=== PATIENT | male | born 1965 ===

== ENCOUNTER 2019-11-14 17:15 | Inpatient (IN) | payer SELFPAY ==
[~2019-11-14 17:15] MED LIST: Iopamidol-370 76% 500 ML 1 ML ONE
[2019-11-14 17:47] LABS: #Eosinphils 0.2 thou/uL (0.0-0.7); #Lymphocytes 1.6 thou/uL (1.20-3.40); #Monocytes 0.7 thou/uL (0.11-0.59); #Neutrophils 2.1 thou/uL (1.40-6.50); %Basophils 1.1 % (0.0-1.0); %Eosinophils 4.5 % (0.0-10.0); %Lymphocytes 35.1 % (21.0-51.0); %Monocytes 14.7 % (0.0-10.0); %Neutrophils 44.7 % (42.0-75.0); Hemoglobin 8.1 g/dL (14.0-18.0); Mean Corpuscular HGB CONC 29.2 g/dL (32.0-36.0); Mean Corpuscular Volume 68.6 fL (78.0-98.0); RBC Distribution Width 17.4 % (11.5-14.5); Red Blood Cell (RBC) Count 4.06 mill/uL (4.70-6.10); White Blood Cell (WBC) Count 4.6 thou/uL (4.8-10.8)
[2019-11-14] MEDS ORDERED: Aspirin Chewable 81 MG TAB ONE (17:51)
[2019-11-14 18:05] LABS: Anisocytosis SLIGHT = 6-15 cells (100X) (0-5/hpf); Elliptocytes SLIGHT = 2-5 cells (100X) (0-1/hpf); Hypochromia MODERATE=16-30 cells (100X) (0-5/hpf); MDiff Complete? YES; Mean Platelet Volume 7.3 fL (7.4-10.4); Microcytosis MODERATE=15-30 cells (100X) (0-5/hpf); Platelet Count 74 thou/uL (130-400); Platelet Morphology Comment Appears Decreased; Polychromasia SLIGHT = 2-3 cells (100X) (0-2/hpf); Reflex for Review?? YES; Target Cells SLIGHT = 2-5 cells (100X) (0-1/hpf); Tear Drops SLIGHT = 2-5 cells (100X) (0-1/hpf)
[2019-11-14 18:09] LABS: ALT (SGPT) 34 U/L (8-55); AST (SGOT) 62 U/L (5-34); Alkaline Phosphatase 87 U/L (40-110); Anion Gap 13 mmol/L (10-20); BUN (Urea Nitrogen) 12 mg/dL (8.4-25.7); Bilirubin, Total 0.6 mg/dL (0.2-1.2); CK (CPK) 312 U/L (30-200); Calc. Creatinine Clearance 0 mL/min (70-130); Calcium 9.1 mg/dL (7.8-10.44); Carbon Dioxide 23 mmol/L (22-29); Chloride 108 mmol/L (98-107); Estimated GFR-MDRD 76; Globulin 3.5 g/dL (2.4-3.5); Glucose 109 mg/dL (70-105); Lipase 48 U/L (8-78); Potassium 4.4 mmol/L (3.5-5.1); Protein, Total 7.5 g/dL (6.0-8.3); Sodium 140 mmol/L (136-145)
[2019-11-14 18:36] LABS: CKMB 8.5 ng/mL (0-6.6)
[2019-11-14] MEDS ORDERED: Enoxaparin Sodium 80 MG/0.8 ML SYRINGE ONE (18:39)
--- NOTE | 2019-11-14 18:59 | RAD ---
CHEST ONE VIEW: 11/14/19 HISTORY: Chest pain. COMPARISON: None. FINDINGS: Heart size is mildly enlarged. There is a patchy lower lobe air space opacity. No pneumothorax. No si gnificant effusion. No acute osseous abnormality. Old left distal clavicular injury as well as injury of the acromioclavicular and coracoclavicular ligaments. Pulmonary arteries are mildly dilated. IMPRESSION: Cardiomegaly with some patchy air space opacities in both lower lobes may reflect atypical infection versus less likely edema. POS: HOME
--- NOTE | 2019-11-14 19:16 | CT ---
CTA OF THE THORAX UTILIZING IV CONTRAST, PE PROTOCOL, 3D REFORMATTED IMAGIN11/14/19 INDICATION: History of chest pain. FINDINGS: There is interstitial thickening suspicious for edema with fluid in the major fissures and small bila teral pleural effusions. No air space consolidation is evident. No central or segmental pulmonary emb olus is evident. There are coronary artery thoracic aortic calcifications. There is cirrhotic morphol ogy of the liver. There is moderate splenomegaly measuring 16 cm. The visualized adrenal glands appea r within normal limits. No free fluid or enlarged lymph nodes are evident. There is a mildly prominen t subcarinal lymph node measuring 1.5 cm. There are mildly prominent precarinal lymph nodes measuring 1.3 cm. There is a mildly prominent AP window lymph node. A few mildly prominent axillary lymph node s bilaterally. One of the largest is seen on the left measuring approximately 1.5 cm. There is scatte red degenerative and osteoarthritic change. IMPRESSION: 1. No central or segmental pulmonary embolus. 2. Findings suspicious for mild CHF. 3. Nonspecific mildly enlarged mediastinal lymph nodes. 4. Cirrhotic morphology of the liver with changes of portal hypertension. POS: BH
[2019-11-14 19:26] LABS: Acetaminophen Less than 6.0 mcg/mL (10.0-30.0); Alcohol Less than 10 mg/dL (Less than 10); Salicylate Less than 8.0 mg/dL (15.0-30.0)
--- NOTE | 2019-11-14 19:34 | PDOC.FPRHP ---
- History of Present Illness Chief Complaint: Chest pain History of Present Illness: This is a 54 yo male who has not seen a doctor in 20 years who presents to the ER with a cc of chest pain. He states the pain first started about a year ago and has been off and on since then. He states the pain is epigastic in nature and he believed it was indigestion since its start. He denies radiation of the pain. He states it is a pressure like pain that is sometimes made worse with exertion. He reports associated SOB and blurry vision with the pain. He would try pepto bismol with little relief. He came in to night because the frequency of the pain has increased to everyday. He denies relevant family history of heart disease. He reports daily drinking, smoking marijuana, cigarettes, and cocaine use. The last time he used cocaine was yesterday and he does not believe this worsens his pain. ED Course: Aspirin 324 mg Lovenox sc 1mg/kg - Allergies/Adverse Reactions Allergies Allergy/AdvReac Type Severity Reaction Status Date / Time No Known Allergies Allergy Unverified 11/14/19 21:11 - Home Medications Medication Instructions Recorded Confirmed Type No Known 11/14/19 11/14/19 History - History PMHx: Alcohol abuse PSHx: Hand and foot surgery FHx: Noncontributory Social: Drinks a 6 pack a day for the last 8 years but denies any withdraw symptoms when stopping. Smokes 3-4 cigarettes when he drinks, uses cocaine, smokes marijuana - Review of Systems General: reports: fatigue. denies: fever/chills, weight/appetite/sleep changes , night sweats Eyes: reports: vision changes (with pain). denies: eye pain ENT: denies: nasal congestion, rhinorrhea Respiratory: reports: shortness of breath, exercise intolerance. denies: cough , congestion Cardiovascular: reports: chest pain. denies: palpitation, edema, paroxysmal nocturnal dyspnea, orthopnea Gastrointestinal: reports: other (reports dark stools when he uses pepto bismol) . denies: nausea, vomiting, diarrhea, constipation, abdominal pain, GI bleeding Genitourinary: denies: incontinence, dysuria Skin: denies: rashes, lesions Musculoskeletal: denies: pain, tenderness Neurological: denies: numbness, syncope Psychological: denies: anxiety, depression - Vital signs BP: 105/82 HR: 101 RR: 18 Tmax: 97.9 Pox: 98% on ra Wt: 84kg - Physical Exam Constitutional: NAD, awake, alert and oriented, well developed HEENT: normocephalic and atraumatic, EOMI, grossly normal vision, grossly normal hearing, MMM Neck: trachea midline, no JVD Chest: no-tender to palpation, no lesions Heart: RRR, normal S1/S2, no murmurs/rubs/gallops, pulses present, other (1+ pitting edema to mid calf) Lungs: CTAB, no respiratory distress, good air movement, no rales/rhonchi, no wheezing, no retractions Abdomen: soft, non-tender, bowel sounds present, no masses/distention, no hernias Musculoskeletal: normal structure, normal tone, ROM grossly normal Neurological: no focal deficit, CN II-XII intact, normal sensation Skin: good turgor, capillary refill <2 seconds Heme/Lymphatic: no unusual bruising or bleeding Psychiatric: normal mood and affect, good judgment and insight FMR H&P: Results - Labs Result Diagrams: 11/15/19 03:40 11/15/19 03:40 Lab results: WBC 4.6 thou/uL (4.8-10.8) L 11/14/19 17:33 Hgb 8.1 g/dL (14.0-18.0) L 11/14/19 17:33 Hct 27.9 % (42.0-52.0) L 11/14/19 17:33 MCV 68.6 fL (78.0-98.0) L 11/14/19 17:33 Plt Count 74 thou/uL (130-400) L 11/14/19 17:33 Neutrophils % 44.7 % (42.0-75.0) 11/14/19 17:33 Sodium 140 mmol/L (136-145) 11/14/19 17:33 Potassium 4.4 mmol/L (3.5-5.1) 11/14/19 17:33 Chloride 108 mmol/L (98-107) H 11/14/19 17:33 Carbon Dioxide 23 mmol/L (22-29) 11/14/19 17:33 BUN 12 mg/dL (8.4-25.7) 11/14/19 17:33 Creatinine 1.02 mg/dL (0.7-1.3) 11/14/19 17:33 Glucose 109 mg/dL (70-105) H 11/14/19 17:33 Calcium 9.1 mg/dL (7.8-10.44) 11/14/19 17:33 Total Bilirubin 0.6 mg/dL (0.2-1.2) 11/14/19 17:33 AST 62 U/L (5-34) H 11/14/19 17:33 ALT 34 U/L (8-55) 11/14/19 17:33 Alkaline Phosphatase 87 U/L (40-110) 11/14/19 17:33 Creatine Kinase 312 U/L (30-200) H 11/14/19 17:33 CK-MB (CK-2) 8.5 ng/mL (0-6.6) H* 11/14/19 17:33 B-Natriuretic Peptide 1206.3 pg/mL (0-100) H 11/14/19 18:16 Serum Total Protein 7.5 g/dL (6.0-8.3) 11/14/19 17:33 Albumin 4.0 g/dL (3.5-5.0) 11/14/19 17:33 Lipase 48 U/L (8-78) 11/14/19 17:33 - EKG Interpretation EKG: Rate 110 Qtc 489 QRS 98 Sinus tach, ST depression in V4-V6, I, aVL, and aVF - Radiology Interpretation CT scan - chest Status: report reviewed by me (1. No central or segmental pulmonary embolus. 2. Findings suspicious for mild CHF. 3. Nonspecific mildly enlarged mediastinal lymph nodes. 4. Cirrhotic morphology of the liver with changes of portal hypertension.) Chest x-ray Status: report reviewed by me (Cardiomegaly, vascular congestion) FMR H&P: A/P - Problem List (1) NSTEMI (non-ST elevated myocardial infarction) Current Visit: Yes Status: Acute Code(s): I21.4 - NON-ST ELEVATION (NSTEMI) MYOCARDIAL INFARCTION (2) Pancytopenia Current Visit: Yes Status: Acute Code(s): D61.818 - OTHER PANCYTOPENIA (3) Cirrhosis Current Visit: Yes Status: Acute Code(s): K74.60 - UNSPECIFIED CIRRHOSIS OF LIVER (4) Cocaine abuse Current Visit: Yes Status: Acute Code(s): F14.10 - COCAINE ABUSE, UNCOMPLICATED - Plan NSTEMI -Admit to tele obs -S/p therapeutic lovenox and aspirin -EKG shows ST elevations in aVR, V1, V2, and ST depressions in V4-V6, I, II, aVL , and aVF -Will trend troponins and EKG -Discussed with Dr. Bettencourt, NPO and DC lovenox at midnight with possible cath in the AM -Will continue aspirin and start atorvastatin Elevate BNP -May be strain related to NSTEMI -Will obtain Echo Pancytopenia -Likely related to alcoholism -Hgb 8.1, Hct 27.9, WBC 4.6, Plt 74 -Transfusion criteria will be Hgb <8 given cardiac condition -Pt typed and crossed Alcohol abuse -ASE protocol, no history of withdraw -Encouraged cessation Cocaine abuse -UDS positive, encouraged cessation Tobacco abuse -Encourage cessation Marijuana abuse -Encourage cessation Cirrhosis -As seen on CT, pending RUQ US -Pending HIV, RPR, Hep C Code: Full Prophylaxis: Pepcid, lovenox Family: None at bedside Fluids: SL Diet: NPO Disposition: DC in 2-3 days PCP: None Addendum - Attending - Attending Attestation Date/Time: 11/15/19 7428 I personally evaluated the patient and discussed the management with Dr. Weiss. I agree with the History, Examination, Assessment and Plan documented above with any addition or exceptions noted below. Patient chest pain free during my evaluation. On ECG appears to have YANDY of high left main in light of elevated aVR and Anterior leads with reciprocal changes V5/[address] Btetencourt reviewed ECG and felt NSTEMI. Hopeful cath this morning. BB held in light of very recent cocaine use, although he does not appear to be intoxicated at this time. Concerning BNP, although clinically he does not have any HF.
[2019-11-14 20:02] LABS: Amphetamine Not Detected (NotDetected); Barbiturates Screen Not Detected (NotDetected); Benzodiazepine Screen Not Detected (NotDetected); Cocaine Metabolite Screen Detected (NotDetected); Medtox Control Line Valid? VALID (VALID); Medtox Reader # READER 4; Methadone Not Detected (NotDetected); Methamphetamine Not Detected (NotDetected); Opiate Screen Not Detected (NotDetected); Oxycodone Screen Not Detected (NotDetected); Phencyclidine (PCP) Not Detected (NotDetected); THC/Cannabinoid Screen Detected (NotDetected); Tricyclic Screen Not Detected (NotDetected)
[2019-11-14 21:01] LABS: Critical Call Chem Troponin I RESULT DECREASING; Troponin I 2.909 ng/mL (< 0.028)
[2019-11-14] MEDS ORDERED: Ondansetron ODT 4 MG TAB PO PRN (22:20)
[2019-11-14] MEDS ORDERED: Ondansetron PF 4 MG/2 ML Vial IVP PRN (22:20)
[2019-11-14] MEDS ORDERED: Diazepam 5 MG TAB PO PRN (22:27)
[2019-11-14] MEDS ORDERED: Famotidine 20 MG TAB PO SCH (22:30)
[2019-11-14] MEDS ORDERED: Diazepam 5 MG TAB PO SCH (23:00)
[2019-11-14] MEDS ORDERED: Thiamine HCl 200 MG/2 ML VIAL IM SCH (23:00)
[2019-11-14 23:16] LABS: Troponin I 2.994 ng/mL (< 0.028)
[2019-11-14 23:31] LABS: HIV (1/2) Antibody/Antigen Non-Reactive (NonReactive); HIV 1/2 INDEX 0.09 S/CO (<1.00); Hep C IgG Ab Non-Reactive (NonReactive)
[2019-11-14 23:37] LABS: Syphilis Antibody Nonreactive (Nonreactive); Syphilis Antibody Index 0.03 S/CO (<1.00 Non-Reactive)
[2019-11-15] MEDS ORDERED: Diazepam 5 MG TAB PO PRN (04:00)
[2019-11-15] MEDS: Enoxaparin Sodium 80 MG/0.8 ML SYRINGE SC SCH ×2 (04:46→17:45)
[2019-11-15 05:05] LABS: ALT (SGPT) 28 U/L (8-55); AST (SGOT) 49 U/L (5-34); Albumin 3.4 g/dL (3.5-5.0); Alkaline Phosphatase 73 U/L (40-110); Anion Gap 13 mmol/L (10-20); BUN (Urea Nitrogen) 13 mg/dL (8.4-25.7); Bilirubin, Total 0.4 mg/dL (0.2-1.2); Calc. Creatinine Clearance 128 mL/min (70-130); Calcium 8.2 mg/dL (7.8-10.44); Carbon Dioxide 21 mmol/L (22-29); Cardiac Risk 3.8 (Less than 4.5); Chloride 108 mmol/L (98-107); Cholesterol 118 mg/dl (< 200 Desired); Estimated GFR-MDRD Greater than 90; Globulin 3.3 g/dL (2.4-3.5); Glucose 88 mg/dL (70-105); HDL Cholesterol 31 mg/dL (>60 Neg Risk); LDL Cholesterol, Calculated 70 mg/dL; Protein, Total 6.7 g/dL (6.0-8.3); Sodium 138 mmol/L (136-145); Triglycerides 86 mg/dL (Less than 150)
[2019-11-15 05:54] LABS: #Eosinphils 0.2 thou/uL (0.0-0.7); #Lymphocytes 1.8 thou/uL (1.20-3.40); #Monocytes 0.7 thou/uL (0.11-0.59); %Basophils 0.7 % (0.0-1.0); %Eosinophils 4.3 % (0.0-10.0); %Monocytes 14.9 % (0.0-10.0); %Neutrophils 42.2 % (42.0-75.0); Anisocytosis SLIGHT = 6-15 cells (100X) (0-5/hpf); Hemoglobin 7.3 g/dL (14.0-18.0); MDiff Complete? YES; Mean Corpuscular HGB CONC 29.8 g/dL (32.0-36.0); Mean Corpuscular Hemoglobin 20.6 pg (27.0-31.0); Mean Platelet Volume 7.4 fL (7.4-10.4); Ovalocytes SLIGHT = 2-5 cells (100X) (0-1/hpf); Platelet Count 71 thou/uL (130-400); Platelet Morphology Comment Appears Decreased; RBC Distribution Width 17.4 % (11.5-14.5); Red Blood Cell (RBC) Count 3.54 mill/uL (4.70-6.10); White Blood Cell (WBC) Count 4.8 thou/uL (4.8-10.8)
--- NOTE | 2019-11-15 06:16 | PDOC.FM ---
- Subjective Subjective: Doing well, no complaints. Denies chest pain, shortness of breath, sources of bleeding. - Objective Vital Signs & Weight: Vital Signs (12 hours) Temp Pulse Resp BP BP Pulse Ox 11/15/19 04:23 99.6 F 108 H 14 123/81 93 L 11/14/19 20:54 98.2 F 108 H 14 118/80 99 Weight Weight 82.826 kg I&O: 11/13/19 11/14/19 11/15/19 06:59 06:59 06:59 Intake Total 240 Output Total 400 Balance -160 Result Diagrams: 11/15/19 03:40 11/15/19 03:40 EKG Reviewed by me: Yes Radiology Reviewed by me: Yes Phys Exam - Physical Examination Constitutional: NAD HEENT: moist MMs Respiratory: clear to auscultation bilateral Cardiovascular: RRR, no significant murmur Gastrointestinal: soft, non-tender Musculoskeletal: no edema, pulses present Neurological: moves all 4 limbs Psychiatric: normal affect, A&O x 3 Skin: no rash Dx/Plan (1) Atypical chest pain Code(s): R07.89 - OTHER CHEST PAIN Status: Acute (2) Cirrhosis Code(s): K74.60 - UNSPECIFIED CIRRHOSIS OF LIVER Status: Acute (3) Cocaine abuse Code(s): F14.10 - COCAINE ABUSE, UNCOMPLICATED Status: Acute (4) NSTEMI (non-ST elevated myocardial infarction) Code(s): I21.4 - NON-ST ELEVATION (NSTEMI) MYOCARDIAL INFARCTION Status: Acute (5) Pancytopenia Code(s): D61.818 - OTHER PANCYTOPENIA Status: Acute - Plan Plan: NSTEMI -S/p therapeutic lovenox and aspirin - holding lovenox this morning for poss cath -Trops: 3.026 > 2.909 > 2.994 -Dr. Bettencourt, Cardiology, consulted last night - appreciate recs -Will continue aspirin and start atorvastatin Elevate BNP -May be strain related to NSTEMI -BNP: 1206 -Will obtain Echo Pancytopenia -Likely related to alcoholism -Hgb 7.3 this morning, due to current cardiac event transfusion level is 8 -Type and Cross 2 u - transfuse 1 u this morning w/ 4 hour post trx H&H Alcohol abuse -ASE protocol, no history of withdraw -Encouraged cessation Cocaine abuse -UDS positive, encouraged cessation Tobacco abuse -Encourage cessation Marijuana abuse -Encourage cessation Cirrhosis -As seen on CT, pending RUQ US -HIV, RPR, Hep C - negative Code: Full Prophylaxis: Pepcid, lovenox Family: None at bedside Fluids: SL Diet: NPO Disposition: Tele inpt for cardiac monitoring. Possible cath today. Pending echo , RUQ US. PCP: None Addendum - Attending - Attending Attestation Date/Time: 11/15/19 4075 I personally evaluated the patient and discussed the management with Dr. Ferrer. I agree with the History, Examination, Assessment and Plan documented above with any addition or exceptions noted below. Patient getting transfused, needs cardiac evaluation regarding NSTEMI which may be due to demand ischemia from his anemia. Monitor for alcohol withdrawal symptoms.
[2019-11-15 07:10] LABS: Iron 16 ug/dL (65-175); Iron Binding Capacity, Total 425 mcg/dL (261-462)
--- NOTE | 2019-11-15 08:10 | ULT ---
GALLBLADDER ULTRASOUND: HISTORY: Alcoholism, ST elevation, cirrhosis on CT scan. FINDINGS: There is irregularity of the substance of the liver of increased echogenicity consistent with cirrhos is. No focal mass or abnormal ductal dilatation is seen. The gallbladder is contracted. No definit e gallstones are seen. The common duct measures 5 mm in diameter. The right kidney and visualized p ortions of the pancreas are unremarkable. No free fluid is seen. IMPRESSION: 1. Cirrhosis of the liver. 2. Contracted gallbladder. POS: [facility]
[2019-11-15] MEDS ORDERED: Famotidine 20 MG TAB PO SCH (09:00)
[2019-11-15] MEDS: Multivitamin W/ Minerals 1 TAB PO SCH (09:38)
[2019-11-15] MEDS: Thiamine 100 MG TAB PO SCH (09:38)
[2019-11-15] MEDS: Magnesium Oxide 400 MG TAB PO SCH (09:38)
[2019-11-15] MEDS: Folic Acid 1 MG TAB PO SCH (09:38)
[2019-11-15] MEDS: Aspirin 81 mg Enteric Coated Tablet PO SCH (09:38)
--- NOTE | 2019-11-15 10:10 | CON ---
DATE OF CONSULTATION: 11/15/2019 REASON FOR CONSULTATION: Non-STEMI. HISTORY OF PRESENT ILLNESS: Mr. Vigil is a 54-year-old gentleman, who comes to the hospital for chest pain. He has had this for about a year. He states on and off. He has noticed that the pain has been getting worse in the last few days, so he decided to come in for evaluation. He admits to cocaine and marijuana use. He uses cocaine probably every other day, he states, and drinks about a 6-pack of beers every day as well. He is currently chest pain free. He was admitted, and initial troponin was elevated, so Cardiology is being consulted for this. PAST MEDICAL HISTORY: Alcohol use. PAST SURGICAL HISTORY: Hand and foot surgery in the past. FAMILY HISTORY: No early coronary artery disease. SOCIAL HISTORY: Drinks a six-pack of beers a day for the last 8 years. Smokes about 4 cigarettes a day. Uses cocaine every other day with marijuana. OUTPATIENT MEDICATIONS: None. ALLERGIES: NO KNOWN DRUG ALLERGIES. REVIEW OF SYSTEMS: A 12-point review of systems was done and was all negative unless stated in the history of present illness. PHYSICAL EXAMINATION: VITAL SIGNS: Temperature 99.0, respiratory rate 18, oxygen saturation 93% on room air, blood pressure 117/76, pulse 100. GENERAL: Awake, alert, oriented x3, no distress. HEENT: Normocephalic and atraumatic. NECK: Supple. LUNGS: Clear. CARDIOVASCULAR: S1 and S2. No S3 or S4. No murmurs. ABDOMEN: Soft. Positive bowel sounds. EXTREMITIES: No edema. SKIN: Warm dry. LABORATORY DATA: Laboratory work was reviewed. On admission, white count was 4.6, hemoglobin was 8.1 down to 7.3, platelet count of 74. Chemistry with a sodium 140, potassium 4.4, chloride 108, carbon dioxide 23, anion gap of 13, BUN of 12, creatinine 1.02, GFR of 76. The creatinine is better today at 0.77. GFR is greater than 90. Initial troponin was 3.0 with a CK-MB of 8.5, second troponin was 2.9, and then third troponin was 2.99. BNP was 1206. Albumin was 4.0 yesterday, 3.4 today. Lipase was 48, LDL of 70, HDL of 31, cholesterol 118, triglycerides of 86. Tox screen was positive for cocaine and cannabis. Syphilis IgG and IgM antibodies nonreactive. Hepatitis C antibody is nonreactive. An HIV antigen and antibody are nonreactive. DIAGNOSTIC DATA: CT of the chest was reviewed. It showed no pulmonary embolus, mild CHF, mildly enlarged mediastinal lymph nodes and cirrhotic morphology of the liver with portal hypertension. Abdominal ultrasound done last night showed cirrhosis of the liver with contracted gallbladder. Echocardiogram is pending. ASSESSMENT AND PLAN: 1. Kig-VC-opgawrcut myocardial infarction. 2. Aglxs-um-jkzvpin systolic versus diastolic heart failure, probably mild. 3. Iron-deficiency anemia. 4. Cirrhosis of the liver, new onset. 5. Alcohol abuse. 6. Substance abuse. PLAN: 1. Mr. Vigil currently is not stable for heart catheterization. His troponin elevation may be related to his sole situation with cocaine and anemia. At this point, he is getting blood transfusions. I think he needs to be tanked up to at least around 10. We will await echocardiogram reading. As this is most likely a dilated cardiomyopathy, would have to rule out ischemia with a heart catheterization. At this point, this would not be prudent given the fact that he is probably bleeding and he has cirrhosis, so he might have some bleeding esophageal varices. This is unclear. Would need GI evaluation for this. 2. Would recommend low-dose IV Lasix in between blood transfusions. 3. If no evidence of active bleeding, we will plan heart catheterization either Tuesday or Tuesday depending on his situation. 4. Would highly recommend his alcohol cessation as well as cocaine use cessation. 5. If his hemoglobin continues to come down despite blood transfusions, I would recommend stopping the full dose Lovenox as he may be having bleeding esophageal varices. 6. His troponin elevation sounds more like demand ischemia given the fluctuation of value and not just the increase and decrease pattern. Thank you for letting us to participate in the care of your patient. We will follow. Job ID: [id number]
[2019-11-15 11:30] LABS: Reticulocyte Count 2.1 % (0.5-1.5)
[2019-11-15 11:43] LABS: INR-International Normal Ratio 1.1; PTT 33.9 SEC (22.9-36.1); Prothrombin Time 14.6 sec (12.0-14.7)
[2019-11-15] MEDS ORDERED: Furosemide 40 MG/4 ML VIAL SLOW IVP SCH (13:30)
[2019-11-15 15:16] LABS: Hemoglobin 8.9 g/dL (14.0-18.0)
[2019-11-15] MEDS ORDERED: Nitroglycerin 2% Ointment 1 INCH/1 GM Packet TOP PRN (17:18)
--- NOTE | 2019-11-15 17:35 | EKG ---
Test Reason : Blood Pressure : / mmHG Vent. Rate : 115 BPM Atrial Rate : 115 BPM P-R Int : 140 ms QRS Dur : 100 ms QT Int : 322 ms P-R-T Axes : 049 076 -67 degrees QTc Int : 445 ms Sinus tachycardia Possible Left atrial enlargement Anterior infarct , age undetermined Marked ST abnormality, possible lateral subendocardial injury Abnormal ECG No previous ECGs available Confirmed by HEIKE MCNEIL, DR. Dickinson (4) on 11/15/2019 5:35:05 PM Referred By: TINO cruz Confirmed By:DR. Alok BURROUGHS MD
[2019-11-15] MEDS: Ascorbic Acid 500 mg Chewable Tablet PO SCH (17:45)
[2019-11-15] MEDS: Ferrous Sulfate 325 MG TAB PO SCH (17:45)
[2019-11-15] MEDS ORDERED: Pantoprazole 40 MG VIAL IVP SCH (18:00)
[2019-11-15 18:29] LABS: Troponin I 5.657 ng/mL (< 0.028)
[2019-11-15] MEDS: Atorvastatin Calcium 40 MG TAB PO SCH (21:01)
[2019-11-15] MEDS: Sodium Chloride 0.9% 1,000 ML IV SCH (21:01)
[2019-11-16 01:37] LABS: Hemoglobin 9.7 g/dL (14.0-18.0)
[2019-11-16] MEDS ORDERED: Furosemide 20 MG/2 ML VIAL SLOW IVP SCH (02:00)
--- NOTE | 2019-11-16 06:16 | PDOC.FM ---
- Subjective Subjective: Pt denies any chest pain or shortness of breath this morning. Did have short period of pain last night that resolved rapidly on it's own. Repeated trop at that time was increased, Freda was contacted and stated he would proceed with cath today. Pt made aware and agreeable with plan. - Objective Vital Signs & Weight: Vital Signs (12 hours) Temp Pulse Pulse Resp BP BP BP 11/16/19 05:41 98.8 F 85 14 114/73 11/16/19 03:12 98.9 F 91 14 120/76 11/16/19 02:48 98.9 F 91 14 120/76 11/15/19 20:33 98.4 F 88 14 115/76 11/15/19 19:21 98.2 F 87 14 119/73 Pulse Ox 11/16/19 05:41 96 11/16/19 03:12 96 11/16/19 02:48 96 11/15/19 20:33 98 11/15/19 19:21 99 Weight Weight 81.737 kg I&O: 11/14/19 11/15/19 11/16/19 06:59 06:59 06:59 Intake Total 240 1815 Output Total 400 2570 Balance -160 -755 Result Diagrams: 11/16/19 06:37 11/16/19 06:37 Phys Exam - Physical Examination Constitutional: NAD HEENT: moist MMs, sclera anicteric Respiratory: clear to auscultation bilateral Cardiovascular: RRR Musculoskeletal: no edema, pulses present Neurological: moves all 4 limbs Psychiatric: normal affect, A&O x 3 Skin: cap refill <2 seconds Dx/Plan (1) Atypical chest pain Code(s): R07.89 - OTHER CHEST PAIN Status: Acute (2) Cirrhosis Code(s): K74.60 - UNSPECIFIED CIRRHOSIS OF LIVER Status: Acute (3) Cocaine abuse Code(s): F14.10 - COCAINE ABUSE, UNCOMPLICATED Status: Acute (4) NSTEMI (non-ST elevated myocardial infarction) Code(s): I21.4 - NON-ST ELEVATION (NSTEMI) MYOCARDIAL INFARCTION Status: Acute (5) Pancytopenia Code(s): D61.818 - OTHER PANCYTOPENIA Status: Acute - Plan Plan: NSTEMI -S/p therapeutic lovenox and aspirin - holding lovenox for cath -Trops: 3.026 > 2.909 > 2.994 > 5 -Dr. Barba Cardiology - plan for cath today -Continue aspirin and atorvastatin Elevate BNP -May be strain related to NSTEMI -BNP: 1206 -Echo: report pending -Following transfusions with 40mg IV lasix Pancytopenia -Likely related to alcoholism Anemia -Microcytic iron deficiency anemia -S/p 2 units Hgb was 9.7, receiving additional 1 unit this morning to reach hgb goal of 10 -Monitor for signs of bleeding -If Hgb were to drop or not increased appropriately will consider GI consult to evaluate for varices/GI bleed Alcohol abuse -ASE protocol, no history of withdraw -Encouraged cessation Cocaine abuse -UDS positive, encouraged cessation Tobacco abuse -Encourage cessation Marijuana abuse -Encourage cessation Cirrhosis -As seen on CT, confirmed on RUQ US -HIV, RPR, Hep C - negative Code: Full Prophylaxis: Pepcid Family: None at bedside Fluids: SL Diet: NPO Disposition: Tele inpt for cardiac monitoring. Plan for cath today. PCP: None Addendum - Attending - Attending Attestation Date/Time: 11/16/19 1310 I personally evaluated the patient and discussed the management with Dr. Ferrer. I agree with the History, Examination, Assessment and Plan documented above with any addition or exceptions noted below. Patient stable. H/H stable. Going for heart cath today. Further mgmt pending that result.
[2019-11-16 06:54] LABS: Mean Corpuscular HGB CONC 30.8 g/dL (32.0-36.0); Mean Corpuscular Hemoglobin 22.7 pg (27.0-31.0); Mean Corpuscular Volume 73.7 fL (78.0-98.0); Mean Platelet Volume 8.5 fL (7.4-10.4); Platelet Count 83 thou/uL (130-400); RBC Distribution Width 20.3 % (11.5-14.5); Red Blood Cell (RBC) Count 5.29 mill/uL (4.70-6.10); White Blood Cell (WBC) Count 6.5 thou/uL (4.8-10.8)
[2019-11-16 07:04] LABS: Anion Gap 12 mmol/L (10-20); BUN (Urea Nitrogen) 10 mg/dL (8.4-25.7); Calc. Creatinine Clearance 100 mL/min (70-130); Calcium 8.8 mg/dL (7.8-10.44); Carbon Dioxide 26 mmol/L (22-29); Chloride 103 mmol/L (98-107); Estimated GFR-MDRD 80; Glucose 103 mg/dL (70-105); Phosphorus 3.6 mg/dL (2.3-4.7); Potassium 3.9 mmol/L (3.5-5.1); Sodium 137 mmol/L (136-145)
[2019-11-16 08:09] LABS: Eosinophils 9 % (0-10); Hypochromia SLIGHT = 6-15 cells (100X) (0-5/hpf); Lymphocytes 38 % (21-51); MDiff Complete? YES; Microcytosis SLIGHT = 6-15 cells (100X) (0-5/hpf); Monocytes 15 % (0-10); Neutrophil 38 % (42-75); Nucleated RBC 1 % (0); Platelet Morphology Comment Appears Decreased; Polychromasia MODERATE = 3-4 cells (100X) (0-2/hpf)
[2019-11-16] MEDS: Pantoprazole 40 MG VIAL IVP SCH (09:11)
[2019-11-16] MEDS ORDERED: Heparin 10,000 UNITS/1 ML VIAL ONE (09:34)
[2019-11-16] MEDS ORDERED: Verapamil 5 MG/2 ML VIAL ONE (09:34)
[2019-11-16] MEDS ORDERED: Nitroglycerin 100MG/250ML BOT 250 ML ONE (09:34)
[2019-11-16] MEDS ORDERED: Iopamidol 370 76% 100 ML VIAL ONE (09:40)
[2019-11-16] MEDS ORDERED: Midazolam HCl 2 mg/2 ml Vial ONE (10:30)
[2019-11-16] MEDS ORDERED: Fentanyl 100 MCG/2 ML VIAL ONE (10:31)
[2019-11-16] MEDS ORDERED: Acetaminophen/Codeine 30-300mg Tablet PO PRN (10:46)
[2019-11-16] MEDS ORDERED: Nitroglycerin 0.4 MG TAB (25 Tab Bottle) SL PRN (10:46)
[2019-11-16] MEDS ORDERED: Sodium Chloride 0.9% 200 ML IV PRN (10:46)
[2019-11-16] MEDS ORDERED: Sodium Chloride 0.9% 500 ML IV SCH (11:00)
[2019-11-16] MEDS: Multivitamin W/ Minerals 1 TAB PO SCH (12:08)
[2019-11-16] MEDS: Folic Acid 1 MG TAB PO SCH (12:08)
[2019-11-16] MEDS: Aspirin 81 mg Enteric Coated Tablet PO SCH (12:08)
[2019-11-16] MEDS: Magnesium Oxide 400 MG TAB PO SCH (12:08)
[2019-11-16] MEDS: Thiamine 100 MG TAB PO SCH (12:10)
[2019-11-16] MEDS: Ascorbic Acid 500 mg Chewable Tablet PO SCH ×2 (12:36→17:31)
[2019-11-16] MEDS: Ferrous Sulfate 325 MG TAB PO SCH ×2 (12:36→17:31)
--- NOTE | 2019-11-16 13:03 | EKG ---
Test Reason : STAT Blood Pressure : / mmHG Vent. Rate : 096 BPM Atrial Rate : 096 BPM P-R Int : 142 ms QRS Dur : 102 ms QT Int : 380 ms P-R-T Axes : 066 076 -65 degrees QTc Int : 480 ms Normal sinus rhythm Possible Left atrial enlargement Anterior infarct (cited on or before 15-NOV-2019) Abnormal ECG When compared with ECG of 15-NOV-2019 17:41, (Unconfirmed) Serial changes of evolving Anterior infarct Present Serial changes of evolving Inferior infarct Present Confirmed by HEIKE MCNEIL, SCarrie (4) on 11/16/2019 1:02:31 PM Referred By: GRICELDA Confirmed By:DR. Alok BURROUGHS MD
[2019-11-16] MEDS: Sodium Chloride 0.9% 1,000 ML IV SCH (17:47)
--- NOTE | 2019-11-16 20:07 | CON ---
DATE OF CONSULTATION: HISTORY OF PRESENT ILLNESS: This is a 54-year-old gentleman with no significant past medical history, who presented with several-day history of chest pain. It is typically in the epigastrium, worse with exertion. He was taking about 4 baby aspirin a day at home for no particular reason, but otherwise on no medicines with no past medical history of note. PAST SURGICAL HISTORY: Includes hand and foot surgery. SOCIAL HISTORY: The patient lives with his mother. He works at [employer] bussing [employer]. He drinks about six pack of beer a day and smokes about a pack of cigarettes a day. He has positive drug screen for cocaine and marijuana. His last alcohol intake was about 36 hours ago. He has no history of DTs. MEDICATIONS: No medications at home besides aspirin. ALLERGIES: NO ALLERGIES. REVIEW OF SYSTEMS: Nocturia x1. Occasional blood in his stool, but not regularly. No constipation or diarrhea. No prior history suggestive of a stroke. FAMILY HISTORY: Positive for heart disease in his mother and sister both have had bypass surgery, his mother more recently this year. Cardiac catheterization today showed severe triple-vessel disease with complete occlusion of the right coronary artery, high-grade lesions x2 in his LAD abutting a diagonal branch and a severe lesion prior to a bifurcating OM. Left ventricular systolic function depressed. Cardiac echo report pending. EF estimated to be about 35% to 40% on left ventriculogram. LVEDP 10. LABORATORY VALUES: Of note on admission, his hemoglobin was 8 following to 7.3 , his platelet count 71,000. Post 3 units of blood, his hemoglobin is 12. His INR is 1.1. His troponin is elevated to 5.6. LFTs; his AST is 49, ferritin 5.64, total iron 16, albumin 3.4, and cholesterol 118. PHYSICAL EXAMINATION: GENERAL: Height 5 feet 6 inches and weight 180. Alert, cooperative gentleman, in no distress. NECK: No carotid bruits. LUNGS: Clear to auscultation. CARDIAC: Regular rate and rhythm. No murmurs. ABDOMEN: Nontender. EXTREMITIES: Palpable pedal pulses. No edema. Good Fco's test in his nondominant left arm with a dressing compression device on his right wrist. ASSESSMENT AND PLAN: The patient with severe 3-vessel coronary artery disease, probable recent myocardial infarction with occlusion of his right coronary artery and depressed LV function. He has cirrhosis of the liver based on CT and ultrasound. He is now 36 hours without DTs. He has severe anemia on admission and I expect that GI evaluation should at least be requested to see if it is appropriate to perform an upper endoscopy. The patient appears to be a Child Class A cirrhotic at this time and although, his surgical risks are elevated with coronary artery bypass grafting, probably not prohibitive. He will need coronary artery bypass grafting and we will await GI evaluation prior to pursuing this. I suspect his platelet count is diminished due to splenomegaly with portal hypertension, but his INR is normal and his albumin is only slightly depressed. Job ID: [id number] [facility]
[2019-11-16] MEDS: Atorvastatin Calcium 40 MG TAB PO SCH (20:48)
--- NOTE | 2019-11-17 01:20 | CON ---
DATE OF CONSULTATION: 11/16/2019 CHIEF COMPLAINT: Chest pain and anemia. HISTORY OF PRESENT ILLNESS: Mr. Vigil is a 54-year-old man who was admitted through the emergency room on 11/14/2019, with [id number] myocardial infarction and chest pain. He underwent cardiac catheterization by Dr. Barba and was found to have 3-vessel coronary artery disease with 90% stenosis of the mid-LAD and 80% stenosis of the proximal circumflex and 100% stenosis of the proximal RCA. He had a CT angiogram scan of his chest during workup of his chest pain, which incidentally showed a nodular cirrhotic liver and signs of portal hypertension. He was also found to have severe anemia with a hemoglobin as low as 7.3, he has received 3 units transfusion and his hemoglobin improved to 12.0, so this 7.3 might have been diluted. He does have chronic iron deficiency with microcytic indices and ferritin of 5. His last cocaine use was on Tuesday. He had been taking aspirin up to four 81 mg aspirin per day. He has been having substernal burning pain on and off since last summer and has taken Pepto-Bismol intermittently for that. When he took Pepto-Bismol, his stools were turned black, but he has seen no other overt evidence of GI bleeding. No melena or red blood in the stool. No diarrhea, constipation, or weight changes. PAST MEDICAL HISTORY: Positive for polysubstance abuse. He has a new diagnosis of cirrhosis. New diagnosis of coronary artery disease. PAST SURGICAL HISTORY: Surgery on his foot and surgery as hands. FAMILY HISTORY: His sister had some type of cancer, which she does not know which type. His father was diagnosed with cancer of some type of stomach cancer or abdominal cancer in his late 40s. SOCIAL HISTORY: He drinks a 6-pack per day and smokes a few cigarettes per day. He smokes marijuana and his last cocaine use was Tuesday of this week. ALLERGIES: NO KNOWN DRUG ALLERGIES. CURRENT MEDICATIONS: 1. Vitamin C. 2. Atorvastatin. 3. Ferrous sulfate. 4. Folic acid. 5. Multivitamin. 6. Magnesium. 7. Pantoprazole 40 mg IV daily. 8. Thiamine. REVIEW OF SYSTEMS: Negative x10 systems reviewed except as stated in history of present illness. PHYSICAL EXAMINATION: VITAL SIGNS: Temperature 98.2, pulse 77, blood pressure 107/74. GENERAL: He is in no acute distress. Alert and oriented x3. HEENT: Eyes have no scleral icterus. Oropharynx is clear without lesions. No cervical or supraclavicular lymphadenopathy. LUNGS: Clear to auscultation bilaterally. HEART: Regular rate and rhythm without murmur. ABDOMEN: Soft, nontender, and nondistended. Bowel sounds are present. EXTREMITIES: No lower extremity edema. Cranial nerves are grossly intact. LABORATORY DATA: Creatinine 0.98. Iron 16, TIBC 425, ferritin 5.64. Troponin 5.6, bilirubin 0.4, AST 49, ALT 28, alkaline phosphatase 73, lipase 48. INR 1.1. White blood cell count 6.5, hemoglobin 12.0 after 3 units transfusion, MCV 73, platelets 83. IMPRESSION: 1. Coronary artery disease, status post [id number] myocardial infarction with 3-vessel disease as described above by cardiac catheterization. He is awaiting coronary artery bypass graft now. 2. Iron deficiency anemia. His sister had cancer at young age and his father had some type of stomach or abdominal cancer in his 40s. The patient will ask his mother if she knows what type of cancer they had. We will rule out of peptic ulcer or significant varices prior to coronary artery bypass graft. The patient needs a colonoscopy. However, this will be delayed until after coronary artery bypass graft. 3. Cirrhosis of the liver. He drinks 6-pack per day. His hepatitis C antibody was negative. I will send additional labs including hepatitis B serology and autoimmune markers. 4. Polysubstance abuse. RECOMMENDATIONS: 1. We will plan for EGD tomorrow. 2. Proton pump inhibitor daily. 3. He will need colonoscopy in the future after heart surgery. 4. Iron supplementation. 5. Proton pump inhibitor. 6. He is encouraged to try to find out more about his family history regarding his cancer in his father and sister. 7. Alcohol cessation and smoking cessation have been advised. Job ID: [id number]
[2019-11-17 05:05] LABS: Band 5 % (5-11); Eosinophils 9 % (0-10); Hemoglobin 11.2 g/dL (14.0-18.0); Lymphocytes 37 % (21-51); MDiff Complete? YES; Mean Corpuscular HGB CONC 30.2 g/dL (32.0-36.0); Mean Corpuscular Hemoglobin 22.3 pg (27.0-31.0); Mean Corpuscular Volume 73.9 fL (78.0-98.0); Mean Platelet Volume 9.3 fL (7.4-10.4); Monocytes 14 % (0-10); Neutrophil 35 % (42-75); Platelet Count 80 thou/uL (130-400); Platelet Morphology Comment Appears Decreased; RBC Distribution Width 20.3 % (11.5-14.5); Red Blood Cell (RBC) Count 5.03 mill/uL (4.70-6.10); White Blood Cell (WBC) Count 5.5 thou/uL (4.8-10.8)
[2019-11-17 05:09] LABS: Anion Gap 12 mmol/L (10-20); BUN (Urea Nitrogen) 13 mg/dL (8.4-25.7); Calc. Creatinine Clearance 117 mL/min (70-130); Calcium 8.2 mg/dL (7.8-10.44); Carbon Dioxide 23 mmol/L (22-29); Chloride 107 mmol/L (98-107); Estimated GFR-MDRD Greater than 90; Glucose 96 mg/dL (70-105); Phosphorus 3.8 mg/dL (2.3-4.7); Potassium 3.8 mmol/L (3.5-5.1); Sodium 138 mmol/L (136-145)
[2019-11-17 05:30] LABS: HBSAg Index 0.14 S/CO (0-0.99); Hep B Surf Ag Non-Reactive S/CO (NonReactive)
[2019-11-17 05:33] LABS: HBSAB Concentration 26.65 mIU/mL; Hep B Surf AB Reactive (NonReactive)
--- NOTE | 2019-11-17 06:15 | PDOC.FM ---
- Subjective Subjective: Had cath yesterday with no complications. Was seen by [facility]. Pt to have EGD today. Agrees with current plan. Denies any CP, SOB. - Objective Vital Signs & Weight: Vital Signs (12 hours) Temp Pulse Resp BP Pulse Ox 11/17/19 03:07 99.6 F 91 20 125/77 96 11/16/19 20:00 98.0 F 79 18 109/69 97 Weight Weight 79.288 kg I&O: 11/15/19 11/16/19 11/17/19 06:59 06:59 06:59 Intake Total 240 1815 2040 Output Total 400 2570 1300 Balance -160 -755 740 Result Diagrams: 11/17/19 04:20 11/17/19 04:20 Phys Exam - Physical Examination Constitutional: NAD HEENT: moist MMs Neck: full ROM Respiratory: clear to auscultation bilateral Cardiovascular: RRR, no significant murmur Musculoskeletal: no edema, pulses present Neurological: moves all 4 limbs Psychiatric: normal affect, A&O x 3 Skin: cap refill <2 seconds Dx/Plan (1) Atypical chest pain Code(s): R07.89 - OTHER CHEST PAIN Status: Acute (2) Cirrhosis Code(s): K74.60 - UNSPECIFIED CIRRHOSIS OF LIVER Status: Acute (3) Cocaine abuse Code(s): F14.10 - COCAINE ABUSE, UNCOMPLICATED Status: Acute (4) NSTEMI (non-ST elevated myocardial infarction) Code(s): I21.4 - NON-ST ELEVATION (NSTEMI) MYOCARDIAL INFARCTION Status: Acute (5) Pancytopenia Code(s): D61.818 - OTHER PANCYTOPENIA Status: Acute - Plan Plan: NSTEMI - 3 vessel CAD -Dr. Barba performed cath yesterday, findings: - 90% stenosis of mid LAD, 80% stenosis of proximal left circumflex, 100% occlusion of RCA -Dr. Dejesus, [facility], consulted for CABG - requests GI eval prior to operation -Holding therapeutic lovenox prior to endoscopy and for possible gastric bleed Elevate BNP -May be strain related to NSTEMI -BNP: 1206 -Echo: report pending -Following all transfusions with 40mg IV lasix Pancytopenia -Likely related to alcoholism Anemia -Microcytic iron deficiency anemia -S/p 3 units PRBC -hgb today 11.2 -Dr. Cuba, GI, consulted to evaluate for possible gastric bleed or esophageal varices - Upper endoscopy planned for today Alcohol abuse -ASE protocol, no history of withdraw -Encouraged cessation Cocaine abuse -UDS positive, encouraged cessation Tobacco abuse -Encourage cessation Marijuana abuse -Encourage cessation Cirrhosis -As seen on CT, confirmed on RUQ US -MELD: 7 (1.9% 3 month mortality) -Child-Olivo: A -HIV, RPR, Hep C - negative -Likely related to chronic alcoholism -Further etiologic labs pending Code: Full Prophylaxis: Pepcid Family: None at bedside Fluids: SL Diet: NPO Disposition: Tele inpt for cardiac monitoring. EGD today. Will need CABG during this hospitalization. PCP: None Addendum - Attending - Attending Attestation Date/Time: 11/17/19 5078 I personally evaluated the patient and discussed the management with Dr. Ferrer. I agree with the History, Examination, Assessment and Plan documented above with any addition or exceptions noted below. Patient going for EGD today, then CABG next week likely. Labs stable. Further mgmt pending EGD result.
[2019-11-17] MEDS: Pantoprazole 40 MG VIAL IVP SCH (08:07)
[2019-11-17] MEDS ORDERED: Midazolam HCl 2 mg/2 ml Vial ONE (09:43)
[2019-11-17] MEDS ORDERED: Ketamine 50 MG/ML (10ML VIAL) ONE (09:43)
[2019-11-17] MEDS ORDERED: Esmolol 100 MG/10 ML VIAL ONE ×2 (09:44→11:37)
[2019-11-17] MEDS ORDERED: Ondansetron HCl/PF 4 MG/2 ML Vial IVP PRN (10:14)
[2019-11-17] MEDS ORDERED: Promethazine HCl 25 MG/ML VIAL IM PRN (10:14)
[2019-11-17] MEDS ORDERED: Promethazine HCl 25 MG/ML VIAL SLOW IVP PRN (10:14)
[2019-11-17] MEDS ORDERED: Communication Order-Pharmacy FS SCH (11:15)
[2019-11-17] MEDS: Ascorbic Acid 500 mg Chewable Tablet PO SCH ×2 (11:22→16:23)
[2019-11-17] MEDS: Thiamine 100 MG TAB PO SCH (11:23)
[2019-11-17] MEDS: Magnesium Oxide 400 MG TAB PO SCH (11:23)
[2019-11-17] MEDS: Ferrous Sulfate 325 MG TAB PO SCH ×2 (11:23→16:23)
[2019-11-17] MEDS: Folic Acid 1 MG TAB PO SCH (11:23)
[2019-11-17] MEDS: Multivitamin W/ Minerals 1 TAB PO SCH (11:23)
[2019-11-17] MEDS ORDERED: Lidocaine 1% PF 5 ML VIAL ONE (11:37)
[2019-11-17] MEDS ORDERED: PROPOFOL 200 MG/20 ML VIAL ONE (11:37)
--- NOTE | 2019-11-17 11:57 | OP ---
DATE OF PROCEDURE: 11/17/2019 PROCEDURE: Esophagogastroduodenoscopy. PREOPERATIVE DIAGNOSES: Iron deficiency anemia and cirrhosis. DESCRIPTION OF PROCEDURE: Informed consent was obtained from the patient. He was sedated with total intravenous anesthesia. The bite block was placed, and the endoscope was advanced easily to the second portion of the duodenum, and retroflexion was performed in the stomach. The esophagus had 3 columns of large grade 3 esophageal varices in the distal esophagus. There were no red signs or stigmata of recent bleeding. The stomach had severe portal hypertensive gastropathy without obvious gastric varices. He did have prominent folds in the antrum with erosions over these and friable gastritis, which may be the source of his iron deficiency anemia. The pylorus and first and second portions of the duodenum were normal. IMPRESSION: 1. Large grade 3 esophageal varices, 3 columns, without red signs or stigmata of recent bleeding. 2. Portal hypertensive gastropathy with erosive antral gastritis. This is friable, but there is no active bleeding. Antral gastritis could be a chronic bleeding source to explain his iron deficiency anemia. 3. Otherwise normal EGD. RECOMMENDATIONS: 1. Iron supplementation and transfusion as needed. 2. Coronary artery bypass graft is planned for Tuesday. 3. Would start a nonselective beta meryl with propranolol. 4. Colonoscopy should be done in the future when able to rule out colon cancer as a cause of his iron deficiency anemia. 5. Proton pump inhibitor in light of the friable gastritis. Job ID: [id number]
--- NOTE | 2019-11-17 15:05 | EKG ---
Test Reason : Blood Pressure : / mmHG Vent. Rate : 107 BPM Atrial Rate : 107 BPM P-R Int : 144 ms QRS Dur : 102 ms QT Int : 362 ms P-R-T Axes : 051 068 -67 degrees QTc Int : 483 ms Sinus tachycardia Left atrial enlargement Possible Inferior infarct , age undetermined Anterior injury pattern Abnormal ECG Note: VA <200 Note: QRS <120 Left ventricular hypertrophy with benign early repolarization Confirmed by RANJIT MCNEIL, NORMAN Carcamo ([id number]), writer editor WANDER TOLLIVER ([id number]) on 11/17/2019 3:05:35 PM Referred By: Confirmed By:NORMAN CHURCH MD
--- NOTE | 2019-11-17 15:07 | EKG ---
Test Reason : Blood Pressure : / mmHG Vent. Rate : 110 BPM Atrial Rate : 110 BPM P-R Int : 144 ms QRS Dur : 098 ms QT Int : 362 ms P-R-T Axes : 055 077 -59 degrees QTc Int : 489 ms Sinus tachycardia Possible Inferior infarct , age undetermined Marked ST abnormality, possible lateral subendocardial injury Abnormal ECG #2 Left ventricular hypertrophy with benign early repolarization Confirmed by RANJIT MCNEIL, NORMAN Carcamo ([id number]), editorial director WANDER TOLLIVER ([id number]) on 11/17/2019 3:07:32 PM Referred By: Confirmed By:NORMAN CHURCH MD
[2019-11-17] MEDS: Atorvastatin Calcium 40 MG TAB PO SCH (20:11)
[2019-11-17] MEDS: Propranolol 10 MG TAB PO SCH (20:11)
--- NOTE | 2019-11-18 06:13 | PDOC.FM ---
- Subjective Subjective: No complaints this morning. No events overnight. Denies any complications following EGD. Discussed EGD findings and possible sources of his anemia. Discussed avoiding NSAIDs and cessation from alcohol. Pt states he feels he would be able to stop drinking but I question how seriously he is taking this information. - Objective Vital Signs & Weight: Vital Signs (12 hours) Temp Pulse Resp BP Pulse Ox 11/18/19 03:20 98.2 F 72 18 111/72 97 11/17/19 20:00 98.2 F 80 18 121/79 96 11/17/19 19:28 97 Weight Weight 79.424 kg I&O: 11/16/19 11/17/19 11/18/19 06:59 06:59 06:59 Intake Total 1815 2040 2040 Output Total 2570 1300 1725 Balance -755 740 315 Result Diagrams: 11/17/19 04:20 11/17/19 04:20 Phys Exam - Physical Examination Constitutional: NAD HEENT: moist MMs, sclera anicteric Neck: full ROM Respiratory: clear to auscultation bilateral Cardiovascular: RRR Musculoskeletal: pulses present Neurological: non-focal, moves all 4 limbs no tremor Psychiatric: normal affect, A&O x 3 Dx/Plan (1) Atypical chest pain Code(s): R07.89 - OTHER CHEST PAIN Status: Acute (2) Cirrhosis Code(s): K74.60 - UNSPECIFIED CIRRHOSIS OF LIVER Status: Acute (3) Cocaine abuse Code(s): F14.10 - COCAINE ABUSE, UNCOMPLICATED Status: Acute (4) NSTEMI (non-ST elevated myocardial infarction) Code(s): I21.4 - NON-ST ELEVATION (NSTEMI) MYOCARDIAL INFARCTION Status: Acute (5) Pancytopenia Code(s): D61.818 - OTHER PANCYTOPENIA Status: Acute - Plan Plan: NSTEMI - 3 vessel CAD -Dr. Barba performed cath yesterday, findings: - 90% stenosis of mid LAD, 80% stenosis of proximal left circumflex, 100% occlusion of RCA -Dr. Dejesus, [facility], consulted for CABG - planned for Tuesday -Holding therapeutic lovenox Elevate BNP -Echo: report pending -Cath: EF 40-45% -Following all transfusions with 40mg IV lasix Pancytopenia -Likely related to alcoholism Anemia -Microcytic iron deficiency anemia -S/p 3 units PRBC -Dr. Cuba, [facility], consulted - EGD yesterday: Grade 3 esophageal varices, 3 columns. Portal HTN w/ erosive gastritis - Started propranolol Alcohol abuse -ASE protocol, no history of withdraw -Encouraged cessation Cirrhosis -MELD: 7 (1.9% 3 month mortality) -Child-Olivo: A -HIV, RPR, Hep C - negative -Likely related to chronic alcoholism -Further etiologic labs pending Code: Full Prophylaxis: Pepcid Family: None at bedside Fluids: SL Diet: HH, NPO at midnight Disposition: Tele inpt for cardiac monitoring. Planned CABG Tuesday. PCP: None Addendum - Attending - Attending Attestation Date/Time: 11/18/19 1023 I personally evaluated the patient and discussed the management with Dr. Ferrer. I agree with the History, Examination, Assessment and Plan documented above with any addition or exceptions noted below. Patient here for NSTEMI in setting of cocaine use as well as symptomatic anemia. He is going for CABG tomorrow. He had EGD yesterday with GI that showed severe varices as well as portal gastropathy. H/H stable.
[2019-11-18] MEDS: Thiamine 100 MG TAB PO SCH (08:08)
[2019-11-18] MEDS: Folic Acid 1 MG TAB PO SCH (08:08)
[2019-11-18] MEDS: Multivitamin W/ Minerals 1 TAB PO SCH (08:08)
[2019-11-18] MEDS: Ascorbic Acid 500 mg Chewable Tablet PO SCH ×2 (08:08→16:34)
[2019-11-18] MEDS: Magnesium Oxide 400 MG TAB PO SCH (08:08)
[2019-11-18] MEDS: Propranolol 10 MG TAB PO SCH ×2 (08:08→20:05)
[2019-11-18] MEDS: Ferrous Sulfate 325 MG TAB PO SCH ×2 (08:09→16:34)
[2019-11-18] MEDS: Atorvastatin Calcium 40 MG TAB PO SCH (20:05)
[2019-11-18] MEDS ORDERED: CEFAZOLIN 2 GM in Premix Bag 1 BAG IVPB SCH (23:15)
[2019-11-19] MEDS: Propranolol 10 MG TAB PO SCH (05:11)
--- NOTE | 2019-11-19 05:58 | PDOC.FM ---
- Subjective Subjective: Patient was resting comfortably, sitting up in bed at the time of evaluation. Patient denied any acute overnight events, such as chest pain, worsening cough, SOB, N/V or hematemesis. Patient is scheduled to have a CABG later this morning w/ Dr. Dejesus ([facility]). - Objective Vital Signs & Weight: Vital Signs (12 hours) Temp Pulse Resp BP Pulse Ox 11/19/19 04:47 98 11/19/19 04:00 98.6 F 72 16 110/62 98 11/19/19 00:15 66 11/18/19 19:10 98.6 F 69 18 118/80 100 Weight Weight 77.292 kg I&O: 11/17/19 11/18/19 11/19/19 06:59 06:59 06:59 Intake Total 2040 2040 1920 Output Total 1300 1725 2305 Balance 740 315 -385 Result Diagrams: 11/19/19 11:53 11/19/19 11:53 Phys Exam - Physical Examination Constitutional: NAD HEENT: PERRLA, moist MMs, sclera anicteric, oral pharynx no lesions Neck: no nodes, supple, full ROM Respiratory: no wheezing, no rales, no rhonchi, clear to auscultation bilateral Cardiovascular: RRR, no significant murmur, no rub Gastrointestinal: soft, non-tender, no distention, positive bowel sounds Musculoskeletal: no edema, pulses present Neurological: non-focal, moves all 4 limbs Lymphatic: no nodes Psychiatric: normal affect, A&O x 3 Skin: no rash Dx/Plan (1) Atypical chest pain Code(s): R07.89 - OTHER CHEST PAIN Status: Acute (2) Cirrhosis Code(s): K74.60 - UNSPECIFIED CIRRHOSIS OF LIVER Status: Acute (3) Cocaine abuse Code(s): F14.10 - COCAINE ABUSE, UNCOMPLICATED Status: Acute (4) NSTEMI (non-ST elevated myocardial infarction) Code(s): I21.4 - NON-ST ELEVATION (NSTEMI) MYOCARDIAL INFARCTION Status: Acute (5) Pancytopenia Code(s): D61.818 - OTHER PANCYTOPENIA Status: Acute - Plan Plan: Patient is a 54 y/o male who presents to the ED for evaluation of Chest Pain. 1. NSTEMI, CAD -Substernal chest pain for past year - no known medical history -Multiple risk factors include Tobacco Abuse, EtOH Abuse and Cocaine Abuse -Trops: 3.256 on presentation - trended up to 5.657 -Dr. Barba (Cards): Heart cath revealed 90% stenosis of mid-LAD, 80% stenosis of proximal LCA, 100% occlusion of RCA -Dr. [facility]us ([facility]): Consulted, planning for CABG later today -Will hold therapeutic Lovenox at this time 2. Elevate BNP -Echo: Report pending -Cath: EF 40-45% -Per Cards recs, will follow all PRBC transfusions with Furosemide IV 40 mg 3. Pancytopenia -Likely related to EtOH Abuse -Will continue to monitor closely 4. Microcytic Anemia -S/p 3 units PRBCs -Dr. Cuba (GI): EGD revealed Grade 3 Esophageal Varices, 3 Columns, Portal HTN w/ Erosive Gastritis consulted - started Propranolol -Hg trended from to 7.3 on admission to 11.2 5. EtOH Abuse -No evidence of EtOH Withdrawal since admission -ASE Protocol -Will continue to encourage EtOH Abuse cessation 6. Cirrhosis -MELD: 7 (1.9% 3 month mortality) -Child-Olivo: A -HIV, RPR, Hep C: Negative -Likely related to chronic alcoholism -Further etiologic labs pending PCP: None Code: Full Diet: NPO since 0001 VTE PPx: Currently holding Lovenox for Surgery Fluids: SL Dispo: Patient is currently stable and admitted to the Telemetry Floor following NSTEMI. [facility] planning for CABG this AM, recs appreciated. Will continue to evaluate Cirrhosis as per above - GI consulted, recs appreciated. Will continue to monitor for signs of EtOH Withdrawal. Expected LOS > 48H. Addendum - Attending - Attending Attestation Date/Time: 11/19/19 0840 I personally evaluated the patient and discussed the management with Dr. Lane I agree with the History, Examination, Assessment and Plan documented above with any addition or exceptions noted below. Patient is a 54 y/o who underwent CABG this morning 2/2 90% mid-LAD stenosis found on cath after patient was evaluated for NSTEMI. EF 40-45%. History alcohol abuse with cirrhosis, MELD 7. Also with history of cocaine abuse. Post- op care after CABG, appreciate CV Surg recs. Monitor ASE scores. RA Thompson
[2019-11-19] MEDS ORDERED: Heparin 10,000 UNITS/1 ML VIAL 30,000 UNITS in Sodium Chloride 0.9% 1,000 ML FS SCH (06:45)
[2019-11-19] MEDS ORDERED: Midazolam HCl 2 mg/2 ml Vial ONE (07:13)
[2019-11-19] MEDS ORDERED: Fentanyl 250 MCG/5 ML VIAL ONE (07:13)
[2019-11-19] MEDS ORDERED: Thrombin 5000 UNITS/5 ML VIAL ONE (10:26)
[2019-11-19] MEDS ORDERED: Aminocaproic Acid 5 GM/20 ML VIAL ONE (10:26)
[2019-11-19] MEDS ORDERED: Lidocaine 2% PF 5 ML VIAL ONE (10:26)
[2019-11-19] MEDS ORDERED: Papaverine 60 MG/2 ML VIAL ONE (10:26)
[2019-11-19] MEDS ORDERED: Rocuronium Bromide 10 MG/ML (10ML VIAL) ONE (10:26)
[2019-11-19] MEDS ORDERED: EPHEDRINE 25 MG/5 ML SYRINGE ONE (10:26)
[2019-11-19] MEDS ORDERED: Ondansetron PF 4 MG/2 ML Vial ONE (10:26)
[2019-11-19] MEDS ORDERED: Sodium Bicarb 50 MEQ/50 ML Abboject 8.4% SYRINGE ONE ×2 (10:26→12:43)
[2019-11-19] MEDS ORDERED: Vecuronium 10 MG VIAL ONE (10:26)
[2019-11-19] MEDS ORDERED: Magnesium Sulfate 1 GM/2 ML VIAL ONE (10:26)
[2019-11-19] MEDS ORDERED: Protamine Sulfate 250 MG/25 ML VIAL ONE (10:26)
[2019-11-19] MEDS ORDERED: PHENYLEPHRINE-NS 100 MCG/ML 10 ML SYRINGE ONE (10:26)
[2019-11-19] MEDS ORDERED: Cardioplegic Soln 1,000 ML BAG ONE (10:26)
[2019-11-19] MEDS ORDERED: PROPOFOL 200 MG/20 ML VIAL ONE (10:26)
[2019-11-19] MEDS ORDERED: Potassium Chloride 60 MEQ/30 ML VIAL ONE (10:26)
[2019-11-19] MEDS ORDERED: Heparin 30,000 units/30 ml VIAL ONE (10:26)
[2019-11-19] MEDS ORDERED: Heparin 5,000 UNITS/ML VIAL ONE (10:26)
[2019-11-19] MEDS ORDERED: Calcium Chloride 1 GM/10 ML Abboject SYRINGE ONE (10:26)
[2019-11-19] MEDS ORDERED: DOPamine 400 MG/D5W 250 ML 250 ML ONE (10:30)
[2019-11-19] MEDS ORDERED: Mag-Al 1200 mg/1200 mg/30 ML UDCUP PO PRN (11:12)
[2019-11-19] MEDS ORDERED: niCARdipine 25 MG in Sodium Chloride 0.9% 250 ML 240 ML IVPB PRN (11:12)
[2019-11-19] MEDS ORDERED: DOPamine 400 MG/D5W 250 ML 250 ML IVPB PRN (11:12)
[2019-11-19] MEDS ORDERED: hydrALAZINE 20 MG/ML VIAL SLOW IVP PRN (11:12)
[2019-11-19] MEDS ORDERED: Magnesium 2 GM/50 ML 2 GM in Premix Bag 1 BAG IVPB SCH (11:12)
[2019-11-19] MEDS ORDERED: Fentanyl 100 MCG/2 ML VIAL SLOW IVP PRN ×2 (11:12)
[2019-11-19] MEDS ORDERED: Bisacodyl 10 MG SUPP PR PRN (11:12)
[2019-11-19] MEDS ORDERED: Nitroglycerin 50 MG/250 ML BOT 250 ML IVPB PRN (11:12)
[2019-11-19] MEDS ORDERED: Norepinephrine 8 MG/0.9% NS 250 ML IVPB PRN (11:12)
[2019-11-19] MEDS ORDERED: Bisacodyl 5 MG TAB PO PRN (11:12)
[2019-11-19] MEDS ORDERED: Hetastarch 6% 500 ML 500 ML IVPB PRN (11:12)
[2019-11-19] MEDS ORDERED: Guaifenesin DM 100-10/5 ML UDCUP PO PRN (11:12)
[2019-11-19] MEDS ORDERED: Post-Op Insulin Drip Protocol IVPB ONE (11:12)
[2019-11-19] MEDS ORDERED: Ondansetron PF 4 MG/2 ML Vial IVP PRN (11:12)
[2019-11-19] MEDS ORDERED: HYDROcodone/Acetaminophen 5/325 mg Tablet PO PRN (11:12)
[2019-11-19] MEDS ORDERED: Morphine 2 MG/ML SYRINGE SLOW IVP PRN (11:12)
[2019-11-19] MEDS ORDERED: Norepinephrine 4 MG/4 ML VIAL ONE (11:14)
[2019-11-19] MEDS ORDERED: Dextrose 5% in Water 1,000 ML IV PRN (11:17)
[2019-11-19] MEDS ORDERED: Dextrose 50% Abboject 50 ML SYRINGE SLOW IVP PRN (11:17)
[2019-11-19] MEDS ORDERED: HUMULIN R 100 UNITS in Sodium Chloride 0.9% 100 ML IVPB SCH (11:17)
[2019-11-19] MEDS: Ascorbic Acid 500 mg Chewable Tablet PO SCH (11:36)
[2019-11-19] MEDS: Ferrous Sulfate 325 MG TAB PO SCH (11:36)
[2019-11-19] MEDS: Ketorolac Tromethamine 30 MG/ML VIAL IVP SCH ×3 (11:38→23:42)
[2019-11-19] MEDS: Lactated Ringer's 1,000 ML IV SCH (11:39)
--- NOTE | 2019-11-19 11:53 | OP ---
DATE OF PROCEDURE: 11/19/2019 PREOPERATIVE DIAGNOSES: 1. Coronary artery disease status post acute right coronary occlusion and inferior myocardial infarction this past week. 2. Alcoholic cirrhosis. PROCEDURES PERFORMED: Coronary artery bypass graft x4; left internal mammary artery good quality to a 2-mm left anterior descending, saphenous vein very small vessel to a 1.5-mm diagonal, saphenous vein somewhat larger to a 1.5- to 2-mm obtuse marginal, saphenous vein to a 1.25-mm posterior lateral, the PDA was diffusely calcified to palpation. RIVER EXPEDITION GUIDE: Deonte. TRANSFUSION: None. DESCRIPTION OF PROCEDURE: After adequate anesthesia had been obtained, the patient was prepped and draped. Dr. Clemons did an endovascular vein harvest of the left greater saphenous vein, which was a bifurcated system, while I performed a median sternotomy. The left internal mammary artery was harvested, and after heparin, it was divided distally and passed posterior to the thymus gland. Aorta was short and it was cannulated as was the right atrium and cardiopulmonary bypass instituted. Aorta was cross-clamped, and after a liter of cold blood cardioplegia, saphenous vein anastomoses were performed to the OM, right posterolateral, diagonal, and finally COLLIER to the LAD. Cross-clamp was removed and the partial occluding clamp placed, and the OM vein graft and the right posterolateral vein grafts were anastomosed to the aortic root, following which the diagonal vein graft was anastomosed to the west of the OM graft and then these proximal anastomoses were marked with rings x2. The patient was then weaned from cardiopulmonary bypass. Cannulas were removed and protamine was given systemically. Mediastinal drains x2 were placed, following which the sternum was reapproximated with #7 interrupted wire using vancomycin paste on the sternal edges, platelet-rich blood and platelet-poor plasma. Subcutaneous tissue and skin were closed in layers. Job ID: [id number]
[2019-11-19 12:07] LABS: #Basophils 0.2 thou/uL (0.0-0.2); #Eosinphils 0.3 thou/uL (0.0-0.7); #Lymphocytes 3.2 thou/uL (1.20-3.40); #Monocytes 2.5 thou/uL (0.11-0.59); #Neutrophils 13.6 thou/uL (1.40-6.50); %Basophils 0.8 % (0.0-1.0); %Eosinophils 1.6 % (0.0-10.0); %Lymphocytes 16.2 % (21.0-51.0); %Monocytes 12.7 % (0.0-10.0); %Neutrophils 68.7 % (42.0-75.0); Mean Corpuscular HGB CONC 29.4 g/dL (32.0-36.0); Mean Corpuscular Hemoglobin 22.3 pg (27.0-31.0); Mean Corpuscular Volume 75.8 fL (78.0-98.0); Mean Platelet Volume 7.3 fL (7.4-10.4); Platelet Count 132 thou/uL (130-400); Red Blood Cell (RBC) Count 4.94 mill/uL (4.70-6.10); White Blood Cell (WBC) Count 19.7 thou/uL (4.8-10.8)
[2019-11-19 12:12] LABS: INR-International Normal Ratio 1.3; PTT 34.9 SEC (22.9-36.1); Prothrombin Time 16.6 sec (12.0-14.7)
[2019-11-19 12:15] LABS: Actual Bicarbonate (HCO3a) 19.1 mEq/L (22-28); Base Excess (BEa) -8.2 mEq/L (-2.0 to +3.0); Calcium, Ionized 1.07 mmol/L (1.12-1.30); Hemoglobin (Hb) 10.8 g/dL (14.0-18.0); O2 Tension (PaO2), arterial 76.4 mmHg (80.0-100.0); Potassium - ABG Lab 4.34 mmol/L (3.70-5.30)
[2019-11-19 12:22] LABS: Anion Gap 10 mmol/L (10-20); BUN (Urea Nitrogen) 12 mg/dL (8.4-25.7); Calc. Creatinine Clearance 123 mL/min (70-130); Calcium 7.2 mg/dL (7.8-10.44); Carbon Dioxide 20 mmol/L (22-29); Chloride 113 mmol/L (98-107); Estimated GFR-MDRD Greater than 90; Glucose 178 mg/dL (70-105); Potassium 4.8 mmol/L (3.5-5.1); Sodium 138 mmol/L (136-145)
--- NOTE | 2019-11-19 12:25 | RAD ---
RADIOGRAPH CHEST 1 VIEW: DATE: 11/19/2019 TIME: 12:05 PM HISTORY: 54-year-old male status post open heart surgery COMPARISON: 11/14/2019 FINDINGS: All of the following are new: Sternotomy wires. Endotracheal tube distal tip at lower thoracic trachea, 2 cm superior to sebastián. Right subclavian central venous catheter with tip near IVC. ECG leads partially obscure lung bases, but there is probably bibasilar mild subsegmental atelectasis . No pulmonary edema. Supine positioning makes this insensitive for pneumothorax detection. IMPRESSION: Very recently status post open heart surgery.
[2019-11-19 12:36] LABS: Puncture Site LINE; pH, Arterial 7.23 (7.35-7.45)
[2019-11-19] MEDS ORDERED: Sodium Bicarb 50 MEQ/50 ML Abboject 8.4% SYRINGE IVP SCH (13:00)
[2019-11-19] MEDS: CEFAZOLIN 2 GM in Premix Bag 1 BAG IVPB SCH ×2 (14:02→20:41)
[2019-11-19 16:16] LABS: Actual Bicarbonate (HCO3a) 21.7 mEq/L (22-28); Base Excess (BEa) -3.4 mEq/L (-2.0 to +3.0); CO2 Tension 39.5 mmHg (35.0-45.0); Calcium, Ionized 1.09 mmol/L (1.12-1.30); Hemoglobin (Hb) 10.9 g/dL (14.0-18.0); O2 Tension (PaO2), arterial 93.9 mmHg (80.0-100.0); Potassium - ABG Lab 4.05 mmol/L (3.70-5.30); pH, Arterial 7.36 (7.35-7.45)
[2019-11-19 16:17] LABS: ALV-art Gradient 141.925 (0-20); Puncture Site ALINE
--- NOTE | 2019-11-19 16:57 | PDOC.CPN ---
- Subjective Date: 11/19/19 Time: 16:50 Interval history: He had CABG earlier today. He is now extubated still on Levophed and dopamine. - Review of Systems General: denies: fever/chills, weight/appetite/sleep changes, night sweats, fatigue Respiratory: denies: cough, congestion, shortness of breath, exercise intolerance Cardiovascular: denies: chest pain, palpitation, edema, paroxysmal nocturnal dyspnea, orthopnea Gastrointestinal: denies: nausea, vomiting, diarrhea, constipation, abd pain, GI bleeding Musculoskeletal: denies: pain, tenderness, stiffness, swelling, arthritis/ arthralgias Neurological: denies: numbness, syncope, seizure, weakness - Objective Allergies/Adverse Reactions: Allergies Allergy/AdvReac Type Severity Reaction Status Date / Time No Known Allergies Allergy Unverified 11/14/19 21:11 Visit Medications: Current Medications Acetaminophen (Tylenol) 650 mg PO Q6H PRN PRN Reason: Headache/Fever Or Mild Pain Hydrocodone Bitart/Acetaminophen ([place] 5/325) 1 tab PO Q4H PRN PRN Reason: Moderate Pain (4-6) Hydrocodone Bitart/Acetaminophen ([place] 5/325) 2 tab PO Q4H PRN PRN Reason: Severe Pain (7-10) Al Hydroxide/Mg Hydroxide (Maalox) 30 ml PO Q4H PRN PRN Reason: Indigestion Albumin Human (Albumin 5%) 12.5 gm IVPB Q6H PRN PRN Reason: To Maintain SBP> 90 mmHG Stop: 11/20/19 11:13 Albumin Human (Albumin 5%) 25 gm IVPB Q6H PRN PRN Reason: To Maintain SBP > 90 mmHG Stop: 11/20/19 11:13 Albuterol/Ipratropium (Duoneb) 3 ml NEB [id number] PRN PRN Reason: SHORTNESS OF BREATH Aspirin (Aspirin Chewable) 81 mg PO DAILY [facility] Bisacodyl (Dulcolax) 10 mg PO Q12H PRN PRN Reason: Constipation Bisacodyl (Dulcolax) 10 mg NC Q12H PRN PRN Reason: Constipation Dextrose/Water (Dextrose 50%) 25 gm SLOW IVP PRN PRN PRN Reason: PER HYPOGLYCEMIC PROTOCOL Famotidine (Pepcid) 20 mg SLOW IVP Q12HR [facility] Fentanyl (Sublimaze) 25 mcg SLOW IVP Q2H PRN PRN Reason: Moderate Pain (4-6) Stop: 11/21/19 11:00 Fentanyl (Sublimaze) 50 mcg SLOW IVP Q2H PRN PRN Reason: Severe Pain (7-10) Stop: 11/21/19 11:00 Glucagon (Glucagon) 1 mg SC PRN PRN PRN Reason: PER HYPOGLYCEMIC PROTOCOL Guaifenesin/Dextromethorphan (Robitussin Dm) 15 ml PO Q4H PRN PRN Reason: Cough Hydralazine HCl (Apresoline) 10 mg SLOW IVP Q6H PRN PRN Reason: To Maintain SBP< 140mmHG Cefazolin Sodium/Dextrose 2 gm (/ Device) 50 mls @ 100 mls/hr IVPB Q8HR [facility] Stop: 11/20/19 06:29 Last Admin: 11/19/19 14:02 Dose: 50 mls Dopamine HCl/Dextrose (Dopamine 400 Mg/D5w 250 Ml) 250 mls @ 0 mls/hr IVPB PRN PRN; Protocol PRN Reason: To maintain SBP > 90 mmHG Hetastarch/Sodium Chloride (Hespan) 500 mls @ 0 mls/hr IVPB PRN PRN PRN Reason: To Maintain SBP > 90mmHg Stop: 11/20/19 11:00 Lactated Ringer's (Lactated Ringer's) 1,000 mls @ 75 mls/hr IV .[id number] [facility] Last Admin: 11/19/19 11:39 Dose: 1,000 mls Norepinephrine Bitartrate (Levophed) 250 mls @ 0 mls/hr IVPB PRN PRN; Protocol PRN Reason: To maintain SBP > 90 mmHG Last Admin: 11/19/19 12:36 Dose: 250 mls Nicardipine HCl 25 mg/ Sodium (Chloride) 250 mls @ 0 mls/hr IVPB INF PRN; Protocol PRN Reason: To Maintain SBP< 140mmHG Nitroglycerin/Dextrose (Nitroglycerin 50 Mg/250 Ml Bot) 250 mls @ 0 mls/hr IVPB PRN PRN; Protocol PRN Reason: To Maintain SBP< 140mmHG Insulin Human Regular 100 (units/ Sodium Chloride) 101 mls @ 0 mls/hr IVPB INF [facility]; Protocol Last Admin: 11/19/19 12:14 Dose: 101 mls Dextrose/Water (D5w) 1,000 mls @ 0 mls/hr IV INF PRN PRN Reason: PRN HYPOGLYCEMIC PROTOCOL Insulin Glargine (Lantus) 0 units SC ONE PRN PRN Reason: POST OPEN HEART ORDERS Stop: 11/20/19 17:00 Insulin Human Regular (Humulin R) 0 units SC Q4H PRN; Protocol PRN Reason: POST CABG SLIDING SCALE Iron/Minerals/Multivitamins (Theragran M) 1 tab PO DAILY [facility] Ketorolac Tromethamine (Toradol) 15 mg IVP Q6HR [facility] Stop: 11/22/19 12:01 Last Admin: 11/19/19 11:38 Dose: 15 mg Morphine Sulfate (Morphine) 2 mg SLOW IVP Q15MIN PRN PRN Reason: Severe Pain (7-10) Ondansetron HCl (Zofran) 4 mg IVP Q6H PRN PRN Reason: Nausea/Vomiting Polyethylene Glycol (Miralax) 17 gm PO DAILY [facility] Potassium Chloride (Kcl) 20 meq IVPB PRN PRN PRN Reason: K level </= 4.0 Vital Signs & Weight: Vital Signs Temp Pulse Resp BP Pulse Ox 11/19/19 16:00 97.5 F L 14 98 11/19/19 15:00 11 L 11/19/19 14:44 81 11/19/19 14:00 16 11/19/19 13:25 97.5 F L 11/19/19 12:00 16 98 11/19/19 11:52 97.8 F 89 92/57 L Weight 170 lb 6.4 oz - Physical Exam General: alert & oriented x3 HEENT: mucus membranes moist Neck: supple neck Cardiac: regular rate and rhythm Lungs: clear to auscultation Neuro: no lateralizing findings Abdomen: active bowel sounds Extremities: 1+ LE edema Skin: clear Musculoskeletal: no fluid collection - Labs Result Diagrams: 11/19/19 11:53 11/19/19 11:53 Troponin/CKMB CK-MB (CK-2) 8.5 ng/mL (0-6.6) H* 11/14/19 17:33 Troponin I 5.657 ng/mL (< 0.028) H* 11/15/19 17:51 - Telemetry Sinus rhythms and dysrhythmias: sinus rhythm - Assessment/Plan Assessment/Plan: 1. Severe multivessel CAD. 2. NSTEMI 3. Alcoholic cirrhosis. PLAN: - Wean pressor and inotrope as tolerated. - ASA, statin for life. - PT once tolerated and pressors off. - Will follow.
[2019-11-19 17:18] LABS: Potassium 4.1 mmol/L (3.5-5.1)
[2019-11-19] MEDS: Famotidine/PF 20 mg/2ml Vial SLOW IVP SCH (20:40)
[2019-11-19] MEDS: Atorvastatin Calcium 10 MG TAB PO SCH (20:40)
--- NOTE | 2019-11-19 21:14 | EKG ---
Test Reason : POST CABG Blood Pressure : / mmHG Vent. Rate : 093 BPM Atrial Rate : 093 BPM P-R Int : 148 ms QRS Dur : 098 ms QT Int : 382 ms P-R-T Axes : 069 088 -47 degrees QTc Int : 474 ms Sinus rhythm with Premature atrial complexes Inferior infarct (cited on or before 14-NOV-2019) Cannot rule out Anterior infarct (cited on or before 15-NOV-2019) Abnormal ECG When compared with ECG of 16-NOV-2019 00:28, Premature atrial complexes are now Present Serial changes of Anterior infarct Present Confirmed by Davide ALMANZA ([id number]) on 11/19/2019 9:14:08 PM Referred By: FRANKY Confirmed By:Davide ALMANZA
[2019-11-20] MEDS: Lactated Ringer's 1,000 ML IV SCH ×2 (00:32→12:11)
[2019-11-20 03:25] LABS: Anion Gap 11 mmol/L (10-20); BUN (Urea Nitrogen) 13 mg/dL (8.4-25.7); Calc. Creatinine Clearance 134 mL/min (70-130); Carbon Dioxide 21 mmol/L (22-29); Chloride 111 mmol/L (98-107); Estimated GFR-MDRD Greater than 90; Glucose 107 mg/dL (70-105); Potassium 3.8 mmol/L (3.5-5.1); Sodium 139 mmol/L (136-145)
[2019-11-20 03:42] LABS: #Basophils 0.1 thou/uL (0.0-0.2); #Lymphocytes 2.2 thou/uL (1.20-3.40); #Monocytes 1.2 thou/uL (0.11-0.59); #Neutrophils 4.8 thou/uL (1.40-6.50); %Basophils 1.1 % (0.0-1.0); %Eosinophils 0.6 % (0.0-10.0); %Lymphocytes 26.2 % (21.0-51.0); %Monocytes 14.6 % (0.0-10.0); %Neutrophils 57.6 % (42.0-75.0); Hemoglobin 8.5 g/dL (14.0-18.0); Mean Corpuscular HGB CONC 29.5 g/dL (32.0-36.0); Mean Corpuscular Hemoglobin 22.1 pg (27.0-31.0); Mean Corpuscular Volume 75.2 fL (78.0-98.0); Mean Platelet Volume 6.9 fL (7.4-10.4); Platelet Count 89 thou/uL (130-400); Red Blood Cell (RBC) Count 3.84 mill/uL (4.70-6.10); White Blood Cell (WBC) Count 8.3 thou/uL (4.8-10.8)
--- NOTE | 2019-11-20 04:52 | PDOC.FM ---
- Subjective Subjective: Patient was resting comfortably in his bedside chair at the time of evaluation. He denied any acute overnight events, such as chest pain, SOB, ABD pain or N/V/ D. - Objective Vital Signs & Weight: Vital Signs (12 hours) Temp Pulse Ox 11/20/19 00:00 99.2 F 11/19/19 20:00 97.1 F L 100 Weight Weight 77.292 kg Most Recent Monitor Data Heart Rate from ECG 93 NIBP 92/60 NIBP BP-Mean 70 Respiration from ECG 20 SpO2 97 I&O: 11/18/19 11/19/19 11/20/19 06:59 06:59 06:59 Intake Total 2040 1920 2209.6 Output Total 1725 2305 2150 Balance 315 -385 59.6 Result Diagrams: 11/20/19 02:45 11/20/19 02:45 Phys Exam - Physical Examination Constitutional: NAD HEENT: PERRLA, moist MMs Neck: no nodes, supple, full ROM Respiratory: no wheezing, no rales, no rhonchi, clear to auscultation bilateral Cardiovascular: RRR Friction rub Gastrointestinal: soft, non-tender, no distention, positive bowel sounds Musculoskeletal: no edema, pulses present Neurological: non-focal, moves all 4 limbs Lymphatic: no nodes Psychiatric: normal affect, A&O x 3 Skin: no rash Dx/Plan (1) Atypical chest pain Code(s): R07.89 - OTHER CHEST PAIN Status: Acute (2) Cirrhosis Code(s): K74.60 - UNSPECIFIED CIRRHOSIS OF LIVER Status: Acute (3) Cocaine abuse Code(s): F14.10 - COCAINE ABUSE, UNCOMPLICATED Status: Acute (4) NSTEMI (non-ST elevated myocardial infarction) Code(s): I21.4 - NON-ST ELEVATION (NSTEMI) MYOCARDIAL INFARCTION Status: Acute (5) Pancytopenia Code(s): D61.818 - OTHER PANCYTOPENIA Status: Acute - Plan Plan: Patient is a 54 y/o male who presents to the ED for evaluation of Chest Pain. 1. NSTEMI, CAD -Substernal chest pain for past year - no known medical history -Multiple risk factors include Tobacco Abuse, EtOH Abuse and Cocaine Abuse -Trops: 3.256 on presentation - trended up to 5.657 -Dr. Barba (Cards): Heart cath revealed 90% stenosis of mid-LAD, 80% stenosis of proximal LCA, 100% occlusion of RCA, currently following -Dr. Dejesus ([facility]): Consulted, performed 2 Vessel CABG on 11/18 and transferred to ICU -Extubated on 11/18 - will plan for PT once tolerated and off of pressors -Ensure appropriate medical management w/ ASA, Statin prior to DC 2. Elevate BNP -Echo: Report pending -Cath: EF 40-45% -Per Cards recs, will follow all PRBC transfusions with Furosemide IV 40 mg 3. Pancytopenia -Likely related to EtOH Abuse -Will continue to monitor closely 4. Microcytic Anemia -S/p 3 units PRBCs -Dr. Cuba (GI): EGD revealed Grade 3 Esophageal Varices, 3 Columns, Portal HTN w/ Erosive Gastritis consulted - started Propranolol -Hg trended from to 7.3 on admission to 11.2 -Hg s/p CABG was 10.5 - will continue to monitor 5. EtOH Abuse -No evidence of EtOH Withdrawal since admission -ASE Protocol -Will continue to encourage EtOH Abuse cessation 6. Cirrhosis -MELD: 7 (1.9% 3 month mortality) -Child-Olivo: A -HIV, RPR, HepC: Negative -HepA: Positive -Will reengage w/ GI following transfer from ICU PCP: None Code: Full Diet: NPO since 0001 VTE PPx: Fluids: SL Dispo: Patient is currently stable and admitted to the Telemetry Floor following NSTEMI. CVSurg planning for CABG this AM, recs appreciated. Will continue to evaluate Cirrhosis as per above - GI consulted, recs appreciated. Will continue to monitor for signs of EtOH Withdrawal. Expected LOS > 48H. Addendum - Attending - Attending Attestation Date/Time: 11/20/19 [id number] I personally evaluated the patient and discussed the management with Dr. Lane I agree with the History, Examination, Assessment and Plan documented above with any addition or exceptions noted below. Patient is a 54 y/o POD1 from CABG. History alcohol abuse with cirrhosis, MELD 7. Also with history of cocaine abuse. Post-op care after CABG, appreciate CV Surg, Cardiology, GI recs. Monitor ASE scores. Hypocalcemia corrected to 7.8, oral supplement. PT/OT. ordered. RA Thompson
[2019-11-20] MEDS: CEFAZOLIN 2 GM in Premix Bag 1 BAG IVPB SCH (05:51)
[2019-11-20] MEDS: Ketorolac Tromethamine 30 MG/ML VIAL IVP SCH ×3 (05:52→18:17)
[2019-11-20] MEDS: Potassium Chloride 20 MEQ/100 ML PREMIX BAG IVPB PRN (05:54)
--- NOTE | 2019-11-20 08:00 | RAD ---
Chest one view HISTORY: Heart surgery. Follow-up. COMPARISON: 11/19/2019. FINDINGS: Cardiac silhouette is magnified and enlarged. Pulmonary vasculature accentuated by shallow inspiration. Ill-defined opacity at each base, partially obscuring the hemidiaphragms, has increased slightly. Mediastinum is midline with postoperative changes and a right subclavian central venous catheter. End otracheal catheter no longer visible. No evidence of pneumothorax. sampler and test preparer leads overlie the chest. IMPRESSION : Interval extubation. Increasing bibasilar atelectasis.
[2019-11-20] MEDS: Polyethylene Glycol 3350 17 GM Packet PO SCH ×2 (08:59→09:04)
[2019-11-20] MEDS: Multivitamin W/ Minerals 1 TAB PO SCH (08:59)
[2019-11-20] MEDS: Famotidine/PF 20 mg/2ml Vial SLOW IVP SCH ×2 (08:59→21:36)
[2019-11-20] MEDS ORDERED: Aspirin Chewable 81 MG TAB PO SCH (09:00)
[2019-11-20] MEDS: HYDROcodone/Acetaminophen 5/325 mg Tablet PO PRN ×2 (10:00→16:52)
[2019-11-20] MEDS ORDERED: Insulin Glargine 10 UNITS in Pre-Filled Syringe 1 EACH SC SCH (10:30)
[2019-11-20] MEDS ORDERED: Calcium Carbonate 600 MG + Vit D TAB PO SCH (12:56)
--- NOTE | 2019-11-20 13:17 | PDOC.CPN ---
- Subjective Date: 11/20/19 Time: 13:17 Interval history: He is feeling better today. Up eating lunch. - Review of Systems General: denies: fever/chills, weight/appetite/sleep changes, night sweats, fatigue Respiratory: denies: cough, congestion, shortness of breath, exercise intolerance Cardiovascular: reports: chest pain, edema. denies: palpitation, paroxysmal nocturnal dyspnea, orthopnea Gastrointestinal: denies: nausea, vomiting, diarrhea, constipation, abd pain, GI bleeding Musculoskeletal: reports: pain. denies: tenderness, stiffness, swelling, arthritis/arthralgias Neurological: denies: numbness, syncope, seizure, weakness - Objective Allergies/Adverse Reactions: Allergies Allergy/AdvReac Type Severity Reaction Status Date / Time No Known Allergies Allergy Unverified 11/14/19 21:11 Visit Medications: Current Medications Acetaminophen (Tylenol) 650 mg PO Q6H PRN PRN Reason: Headache/Fever Or Mild Pain Hydrocodone Bitart/Acetaminophen ([place] 5/325) 1 tab PO Q4H PRN PRN Reason: Moderate Pain (4-6) Last Admin: 11/20/19 10:00 Dose: 1 tab Hydrocodone Bitart/Acetaminophen ([place] 5/325) 2 tab PO Q4H PRN PRN Reason: Severe Pain (7-10) Al Hydroxide/Mg Hydroxide (Maalox) 30 ml PO Q4H PRN PRN Reason: Indigestion Albuterol/Ipratropium (Duoneb) 3 ml NEB [id number] PRN PRN Reason: SHORTNESS OF BREATH Last Admin: 11/20/19 08:44 Dose: 3 ml Aspirin (Aspirin Chewable) 81 mg PO DAILY [facility] Last Admin: 11/20/19 08:59 Dose: 81 mg Atorvastatin Calcium (Lipitor) 10 mg PO HS [facility] Last Admin: 11/19/19 20:40 Dose: 10 mg Bisacodyl (Dulcolax) 10 mg PO Q12H PRN PRN Reason: Constipation Bisacodyl (Dulcolax) 10 mg [place] Q12H PRN PRN Reason: Constipation Calcium/Vitamin D (Caltrate 600 + Vit D) 1 tab PO [facility] Calcium/Vitamin D (Caltrate 600 + Vit D) 1 tab PO NOW [facility] Stop: 11/20/19 14:00 Dextrose/Water (Dextrose 50%) 25 gm SLOW IVP PRN PRN PRN Reason: PER HYPOGLYCEMIC PROTOCOL Famotidine (Pepcid) 20 mg SLOW IVP Q12HR [facility] Last Admin: 11/20/19 08:59 Dose: 20 mg Fentanyl (Sublimaze) 25 mcg SLOW IVP Q2H PRN PRN Reason: Moderate Pain (4-6) Stop: 11/21/19 11:00 Last Admin: 11/19/19 19:18 Dose: 25 mcg Fentanyl (Sublimaze) 50 mcg SLOW IVP Q2H PRN PRN Reason: Severe Pain (7-10) Stop: 11/21/19 11:00 Glucagon (Glucagon) 1 mg SC PRN PRN PRN Reason: PER HYPOGLYCEMIC PROTOCOL Guaifenesin/Dextromethorphan (Robitussin Dm) 15 ml PO Q4H PRN PRN Reason: Cough Hydralazine HCl (Apresoline) 10 mg SLOW IVP Q6H PRN PRN Reason: To Maintain SBP< 140mmHG Dopamine HCl/Dextrose (Dopamine 400 Mg/D5w 250 Ml) 250 mls @ 0 mls/hr IVPB PRN PRN; Protocol PRN Reason: To maintain SBP > 90 mmHG Lactated Ringer's (Lactated Ringer's) 1,000 mls @ 75 mls/hr IV .[id number] [facility] Last Admin: 11/20/19 12:11 Dose: Not Given Norepinephrine Bitartrate (Levophed) 250 mls @ 0 mls/hr IVPB PRN PRN; Protocol PRN Reason: To maintain SBP > 90 mmHG Last Admin: 11/19/19 12:36 Dose: 250 mls Nicardipine HCl 25 mg/ Sodium (Chloride) 250 mls @ 0 mls/hr IVPB INF PRN; Protocol PRN Reason: To Maintain SBP< 140mmHG Nitroglycerin/Dextrose (Nitroglycerin 50 Mg/250 Ml Bot) 250 mls @ 0 mls/hr IVPB PRN PRN; Protocol PRN Reason: To Maintain SBP< 140mmHG Insulin Human Regular 100 (units/ Sodium Chloride) 101 mls @ 0 mls/hr IVPB INF [facility]; Protocol Last Admin: 11/19/19 12:14 Dose: 101 mls Dextrose/Water (D5w) 1,000 mls @ 0 mls/hr IV INF PRN PRN Reason: PRN HYPOGLYCEMIC PROTOCOL Insulin Glargine 10 units/ (Miscellaneous Medication) 0.1 mls @ 0 mls/hr SC NOW [facility] Stop: 11/20/19 14:00 Last Admin: 11/20/19 11:26 Dose: 0.1 mls Insulin Glargine (Lantus) 0 units SC ONE PRN PRN Reason: POST OPEN HEART ORDERS Stop: 11/20/19 17:00 Insulin Human Regular (Humulin R) 0 units SC Q4H PRN; Protocol PRN Reason: POST CABG SLIDING SCALE Iron/Minerals/Multivitamins (Theragran M) 1 tab PO DAILY [facility] Last Admin: 11/20/19 08:59 Dose: 1 tab Ketorolac Tromethamine (Toradol) 15 mg IVP Q6HR [facility] Stop: 11/22/19 12:01 Last Admin: 11/20/19 11:27 Dose: 15 mg Morphine Sulfate (Morphine) 2 mg SLOW IVP Q15MIN PRN PRN Reason: Severe Pain (7-10) Ondansetron HCl (Zofran) 4 mg IVP Q6H PRN PRN Reason: Nausea/Vomiting Polyethylene Glycol (Miralax) 17 gm PO DAILY [facility] Last Admin: 11/20/19 09:04 Dose: Not Given Potassium Chloride (Kcl) 20 meq IVPB PRN PRN PRN Reason: K level </= 4.0 Last Admin: 11/20/19 05:54 Dose: 20 meq Vital Signs & Weight: Vital Signs Temp Pulse Resp Pulse Ox 11/20/19 12:00 99.0 F 11/20/19 08:44 94 28 H 94 L 11/20/19 08:00 98.9 F 96 11/20/19 04:00 99.1 F 96 Weight 1837 lb 12.373 oz - Physical Exam General: alert & oriented x3 HEENT: mucus membranes moist Neck: supple neck Cardiac: regular rate and rhythm Lungs: clear to auscultation Neuro: grossly intact Abdomen: active bowel sounds Extremities: 1+ LE edema Skin: clear Musculoskeletal: no pain - Labs Result Diagrams: 11/20/19 02:45 11/20/19 02:45 Troponin/CKMB CK-MB (CK-2) 8.5 ng/mL (0-6.6) H* 11/14/19 17:33 Troponin I 5.657 ng/mL (< 0.028) H* 11/15/19 17:51 - Telemetry Sinus rhythms and dysrhythmias: sinus rhythm - Assessment/Plan Assessment/Plan: 1. Severe multivessel CAD. 2. NSTEMI 3. Alcoholic cirrhosis. 4. Substance abuse (cocaine, marihuana) 5. Alcohol abuse PLAN: - Wean levophed as tolerated. - ASA, statin for life. - PT once tolerated. - BP still borderline low for ACEI or BB. - Counselled on cessation of alcohol and substance use.
[2019-11-20 13:40] LABS: Alpha-1-Antitrypsin 166 mg/dL (101-187)
[2019-11-20] MEDS: Insulin Regular 300 UNITS/3 ML VIAL SC PRN ×3 (13:54→23:05)
[2019-11-20 14:16] LABS: Smooth Muscle Total ABS 4 Units (0-19)
[2019-11-20 18:44] LABS: EliA Vaculitis New Method **** NEW METHOD ****
[2019-11-20] MEDS: Atorvastatin Calcium 10 MG TAB PO SCH (21:36)
[2019-11-21] MEDS: Ketorolac Tromethamine 30 MG/ML VIAL IVP SCH ×2 (00:31→05:44)
[2019-11-21 04:02] LABS: Hemoglobin 7.8 g/dL (14.0-18.0); Lymphocytes 33 % (21-51); MDiff Complete? YES; Mean Corpuscular HGB CONC 30.1 g/dL (32.0-36.0); Mean Corpuscular Hemoglobin 22.8 pg (27.0-31.0); Mean Corpuscular Volume 75.7 fL (78.0-98.0); Mean Platelet Volume 7.9 fL (7.4-10.4); Monocytes 14 % (0-10); Neutrophil 53 % (42-75); Platelet Count 70 thou/uL (130-400); Platelet Morphology Comment Appears Decreased; RBC Distribution Width 21.4 % (11.5-14.5); Red Blood Cell (RBC) Count 3.43 mill/uL (4.70-6.10)
[2019-11-21 04:22] LABS: Anion Gap 9 mmol/L (10-20); BUN (Urea Nitrogen) 10 mg/dL (8.4-25.7); Calc. Creatinine Clearance 141 mL/min (70-130); Calcium 7.4 mg/dL (7.8-10.44); Carbon Dioxide 25 mmol/L (22-29); Chloride 108 mmol/L (98-107); Estimated GFR-MDRD Greater than 90; Glucose 124 mg/dL (70-105); Magnesium 2.1 mg/dL (1.6-2.6); Potassium 3.6 mmol/L (3.5-5.1); Sodium 138 mmol/L (136-145)
[2019-11-21] MEDS: Lactated Ringer's 1,000 ML IV SCH (05:20)
--- NOTE | 2019-11-21 05:34 | PDOC.FM ---
- Subjective Subjective: Patient was sitting up in his chair at the time of evaluation. He denied any acute overnight events, specifically with regard to chest pain, SOB, N/V or ABD pain. - Objective Vital Signs & Weight: Vital Signs (12 hours) Temp Pulse Ox 11/21/19 00:00 99.8 F H 11/20/19 20:00 98.7 F 99 Weight Weight 83.6 kg Most Recent Monitor Data Heart Rate from ECG 104 NIBP 118/80 NIBP BP-Mean 92 Respiration from ECG 21 SpO2 98 I&O: 11/19/19 11/20/19 11/21/19 06:59 06:59 06:59 Intake Total 1920 3758.9 1851 Output Total 2305 2335 2155 Balance -385 1423.9 -304 Result Diagrams: 11/21/19 03:20 11/21/19 03:20 Phys Exam - Physical Examination Constitutional: NAD HEENT: moist MMs, sclera anicteric, oral pharynx no lesions Neck: supple, full ROM Respiratory: no wheezing, no rales, no rhonchi, clear to auscultation bilateral Cardiovascular: RRR, no significant murmur, no rub Rub absent Gastrointestinal: soft, non-tender, no distention, positive bowel sounds Musculoskeletal: pulses present Neurological: non-focal, moves all 4 limbs Dx/Plan (1) Atypical chest pain Code(s): R07.89 - OTHER CHEST PAIN Status: Acute (2) Cirrhosis Code(s): K74.60 - UNSPECIFIED CIRRHOSIS OF LIVER Status: Acute (3) Cocaine abuse Code(s): F14.10 - COCAINE ABUSE, UNCOMPLICATED Status: Acute (4) NSTEMI (non-ST elevated myocardial infarction) Code(s): I21.4 - NON-ST ELEVATION (NSTEMI) MYOCARDIAL INFARCTION Status: Acute (5) Pancytopenia Code(s): D61.818 - OTHER PANCYTOPENIA Status: Acute - Plan Plan: Patient is a 54 y/o male who presents to the ED for evaluation of Chest Pain. 1. NSTEMI, CAD -Substernal chest pain for past year - no known medical history -Multiple risk factors include Tobacco Abuse, EtOH Abuse and Cocaine Abuse -Trops: 3.256 on presentation - trended up to 5.657 -Dr. Barba (Cards): Heart cath revealed 90% stenosis of mid-LAD, 80% stenosis of proximal LCA, 100% occlusion of RCA, currently following -Dr. Dejesus ([facility]): Consulted, performed 2 Vessel CABG on 11/18 and transferred to ICU -Extubated on 11/18 - will plan for PT once tolerated and off of pressors -ASA, Statin -Will likely transfer to Telemetry Floor later today, per Nursing Staff 2. Elevate BNP -Echo: Report still pending - will reinvestigate later today -Cath: EF 40-45% -Per Cards recs, will follow all PRBC transfusions with Furosemide IV 40 mg 3. Pancytopenia -Likely related to EtOH Abuse -Will continue to monitor closely 4. Microcytic Anemia -S/p 3 units PRBCs -Dr. Cuba (GI): EGD revealed Grade 3 Esophageal Varices, 3 Columns, Portal HTN w/ Erosive Gastritis consulted - started Propranolol -Hg trended from to 7.3 on admission to 11.2 -Hg s/p CABG was 10.5 - will continue to monitor 5. EtOH Abuse -No evidence of EtOH Withdrawal since admission -ASE Protocol -Will continue to encourage EtOH Abuse cessation 6. Cirrhosis -MELD: 7 (1.9% 3 month mortality) -Child-Olivo: A -HIV, RPR, HepC: Negative -HepA AB: Positive -Will reengage w/ GI following transfer from ICU PCP: None Code: Full Diet: Heart Healthy Fluids: SL Dispo: Patient is currently stable and admitted to the ICU following NSTEMI, s/ p CABG Day 2. Anticipate transfer to Telemetry Floor soon following DC of pressors - will coordinate w/ CVSurg and Cards as needed. Will continue to evaluate Cirrhosis as per above, although likely 2/2 EtOH abuse - GI consulted, recs appreciated. Will continue to monitor for signs of EtOH Withdrawal. Plan for medication optimization and PT/OT planning once moved from the ICU. Expected LOS > 48H. Addendum - Attending - Attending Attestation Date/Time: 11/21/19 [id number] I personally evaluated the patient and discussed the management with Dr. Lane I agree with the History, Examination, Assessment and Plan documented above with any addition or exceptions noted below. Patient is a 54 y/o POD2 from CABG. History alcohol abuse with cirrhosis, MELD 7. Also with history of cocaine abuse. Post-op care after CABG, appreciate CV Surg, Cardiology, GI recs. Monitor ASE scores. Off pressors, start PT/OT today. RA Thompson
[2019-11-21] MEDS: HYDROcodone/Acetaminophen 5/325 mg Tablet PO PRN ×3 (05:48→20:07)
[2019-11-21] MEDS: Potassium Chloride 20 MEQ/100 ML PREMIX BAG IVPB PRN (06:56)
--- NOTE | 2019-11-21 08:00 | RAD ---
PORTABLE CHEST 1 VIEW: DATE: 11/21/2019. TIME: 4:10 a.m. HISTORY: Post open heart surgery. COMPARISON: Previous day. FINDINGS/IMPRESSION: Changes of median sternotomy and cardiomegaly are again seen. The right-sided central line remains i n place. Continued mild elevation of the right hemidiaphragm. No lobar consolidation, pneumothorace s, or large effusions are seen. POS: [facility]
[2019-11-21] MEDS ORDERED: Guaifenesin DM 100-10/5 ML UDCUP PO PRN (08:07)
[2019-11-21] MEDS ORDERED: Mineral Oil ENEMA PR PRN (08:07)
[2019-11-21] MEDS ORDERED: Nitroglycerin 0.4 MG TAB (25 Tab Bottle) SL PRN (08:07)
[2019-11-21] MEDS: Calcium Carbonate 600 MG + Vit D TAB PO SCH (08:24)
[2019-11-21] MEDS: Furosemide 40 MG TAB PO SCH (08:24)
[2019-11-21] MEDS: Multivitamin W/ Minerals 1 TAB PO SCH (08:24)
[2019-11-21] MEDS: Polyethylene Glycol 3350 17 GM Packet PO SCH (08:26)
[2019-11-21] MEDS ORDERED: Dextrose 50% Abboject 50 ML SYRINGE SLOW IVP PRN (08:27)
[2019-11-21] MEDS ORDERED: Dextrose 5% in Water 1,000 ML IV PRN (08:27)
[2019-11-21] MEDS ORDERED: Insulin Regular 300 UNITS/3 ML VIAL SC PRN (08:27)
--- NOTE | 2019-11-21 08:29 | PRG ---
DATE OF SERVICE: 11/21/2019 The patient's blood pressure has been in the 90 to 100 range with a heart rate about 90. Chest tube output has been serous and decreasing to about 150 mL for the past 12 hours. His urine output has been good at about 1300 mL overnight. He has a weight recorded of 184 compared with a preop weight of 170. He is up in the chair with no complaints. His lungs are clear. Dressings are dry. We will go ahead and remove his chest tube today and begin Lasix orally. He is on low-dose statin, which was started and my medications will be kept at low dose given his liver disease. We will continue with vitamins and iron supplements and begin physical therapy. Job ID: [id number]
[2019-11-21] MEDS: Aspirin 325 mg Enteric Coated Tablet PO SCH (08:44)
[2019-11-21] MEDS: Potassium Chloride 10 MEQ TAB PO SCH (08:44)
[2019-11-21] MEDS: Famotidine 20 MG TAB PO SCH ×2 (08:44→20:07)
[2019-11-21] MEDS: Ferrous Gluconate 324 MG TAB PO SCH (08:44)
--- NOTE | 2019-11-21 13:32 | PDOC.CPN ---
- Subjective Date: 11/21/19 Time: 12:45 Interval history: Doing better. Had normal BM this morning. Walking with PT without issues. - Review of Systems General: denies: fever/chills, weight/appetite/sleep changes, night sweats, fatigue Respiratory: denies: cough, congestion, shortness of breath, exercise intolerance Cardiovascular: denies: chest pain, palpitation, edema, paroxysmal nocturnal dyspnea, orthopnea Gastrointestinal: denies: nausea, vomiting, diarrhea, constipation, abd pain, GI bleeding Musculoskeletal: denies: pain, tenderness, stiffness, swelling, arthritis/ arthralgias Neurological: denies: numbness, syncope, seizure, weakness - Objective Allergies/Adverse Reactions: Allergies Allergy/AdvReac Type Severity Reaction Status Date / Time No Known Allergies Allergy Unverified 11/14/19 21:11 Visit Medications: Current Medications Acetaminophen (Tylenol) 650 mg PO Q6H PRN PRN Reason: Headache/Fever Or Mild Pain Hydrocodone Bitart/Acetaminophen ([place] 5/325) 1 tab PO Q4H PRN PRN Reason: Moderate Pain (4-6) Last Admin: 11/21/19 11:42 Dose: 1 tab Hydrocodone Bitart/Acetaminophen ([place] 5/325) 2 tab PO Q4H PRN PRN Reason: Severe Pain (7-10) Al Hydroxide/Mg Hydroxide (Maalox) 30 ml PO Q4H PRN PRN Reason: Indigestion Aspirin (Ecotrin) 325 mg PO DAILY [facility] Last Admin: 11/21/19 08:44 Dose: 325 mg Atorvastatin Calcium (Lipitor) 10 mg PO HS [facility] Last Admin: 11/20/19 21:36 Dose: 10 mg Bisacodyl (Dulcolax) 10 mg PO Q12H PRN PRN Reason: Constipation Bisacodyl (Dulcolax) 10 mg [place] Q12H PRN PRN Reason: Constipation Calcium/Vitamin D (Caltrate 600 + Vit D) 1 tab PO [facility] Last Admin: 11/21/19 08:24 Dose: 1 tab Dextrose/Water (Dextrose 50%) 25 gm SLOW IVP PRN PRN PRN Reason: PER HYPOGLYCEMIC PROTOCOL Famotidine (Pepcid) 20 mg PO BID [facility] Last Admin: 11/21/19 08:44 Dose: 20 mg Ferrous Gluconate (Fergon) 324 mg PO [facility] Last Admin: 11/21/19 08:44 Dose: 324 mg Furosemide (Lasix) 40 mg PO DAILY-AC [facility] Last Admin: 11/21/19 08:24 Dose: 40 mg Furosemide (Lasix) 40 mg PO 1600 [facility] Stop: 11/21/19 18:00 Glucagon (Glucagon) 1 mg SC PRN PRN PRN Reason: PER HYPOGLYCEMIC PROTOCOL Guaifenesin/Dextromethorphan (Robitussin Dm) 15 ml PO Q4H PRN PRN Reason: Cough Dextrose/Water (D5w) 1,000 mls @ 0 mls/hr IV INF PRN PRN Reason: PRN HYPOGLYCEMIC PROTOCOL Insulin Human Regular (Humulin R) 0 units SC Q4H PRN; Protocol PRN Reason: POST OP SLIDING SCALE Last Admin: 11/21/19 11:43 Dose: 4 unit Iron/Minerals/Multivitamins (Theragran M) 1 tab PO DAILY [facility] Last Admin: 11/21/19 08:24 Dose: 1 tab Mineral Oil (Fleet Mineral Oil) 133 ml [place] DAILYPRN PRN PRN Reason: Constipation Nitroglycerin (Nitrostat) 0.4 mg SL Q5MIN PRN PRN Reason: Chest Pain Ondansetron HCl (Zofran) 4 mg IVP Q6H PRN PRN Reason: Nausea/Vomiting Polyethylene Glycol (Miralax) 17 gm PO DAILY [facility] Last Admin: 11/21/19 08:26 Dose: 17 gm Potassium Chloride (Klor-Con 10) 10 meq PO QAM-WM [facility] Last Admin: 11/21/19 08:44 Dose: 10 meq Vital Signs & Weight: Vital Signs Temp Pulse Pulse Pulse Resp BP BP 11/21/19 11:36 98.5 F 97 18 11/21/19 09:51 92 97 118/73 146/84 H 11/21/19 09:25 98.6 F 92 18 11/21/19 08:00 98.0 F 11/21/19 07:54 11/21/19 04:00 100.1 F H BP Pulse Ox Pulse Ox Pulse Ox 11/21/19 11:36 122/76 98 11/21/19 09:51 98 99 11/21/19 09:25 124/78 99 11/21/19 08:00 100 11/21/19 07:54 97 11/21/19 04:00 Weight 184 lb 4.903 oz - Physical Exam General: alert & oriented x3 HEENT: mucus membranes moist Neck: supple neck Cardiac: regular rate and rhythm Lungs: normal breath sounds Neuro: grossly intact Abdomen: active bowel sounds Extremities: 1+ LE edema Skin: clear Musculoskeletal: no pain - Labs Result Diagrams: 11/21/19 03:20 11/21/19 03:20 Troponin/CKMB CK-MB (CK-2) 8.5 ng/mL (0-6.6) H* 11/14/19 17:33 Troponin I 5.657 ng/mL (< 0.028) H* 11/15/19 17:51 - Telemetry Sinus rhythms and dysrhythmias: sinus rhythm - Assessment/Plan Assessment/Plan: 1. Severe multivessel CAD. 2. NSTEMI 3. Alcoholic cirrhosis. 4. Substance abuse (cocaine, marihuana) 5. Alcohol abuse PLAN: - ASA, statin for life. - Advance PT as tolerated. - Will start low dose ACEI. Will not start BB until he has been off cocaine for at least 6 months. - Counselled on cessation of alcohol and substance use. - CV stable.
[2019-11-21] MEDS ORDERED: Furosemide 40 MG TAB PO SCH (16:00)
[2019-11-21] MEDS: Atorvastatin Calcium 10 MG TAB PO SCH (20:10)
[2019-11-22] MEDS: Acetaminophen 325 MG TAB PO PRN ×2 (05:12→20:45)
--- NOTE | 2019-11-22 07:21 | PDOC.FM ---
- Subjective Subjective: Patient was resting comfortably in bed at the time of evaluation and denied any acute overnight events. - Objective Vital Signs & Weight: Vital Signs (12 hours) Temp Pulse Resp BP Pulse Ox 11/22/19 04:00 100.9 F H 107 H 18 99/68 96 11/21/19 23:38 99.7 F H 11/21/19 19:56 99.8 F H 104 H 19 112/71 99 Weight Weight 82.554 kg Most Recent Monitor Data Heart Rate from ECG 94 NIBP 117/76 NIBP BP-Mean 89 Respiration from ECG 20 SpO2 99 I&O: 11/21/19 11/22/19 11/23/19 06:59 06:59 06:59 Intake Total 1851 1900 Output Total 4424 1995 Balance -564 -595 Result Diagrams: 11/22/19 08:17 11/22/19 08:17 Phys Exam - Physical Examination Constitutional: NAD HEENT: moist MMs, sclera anicteric, oral pharynx no lesions Neck: no JVD, supple, full ROM Respiratory: no wheezing, no rales, no rhonchi, clear to auscultation bilateral Cardiovascular: RRR, no significant murmur, no rub Gastrointestinal: soft, non-tender, no distention, positive bowel sounds Musculoskeletal: no edema, pulses present Neurological: non-focal, moves all 4 limbs Lymphatic: no nodes Psychiatric: normal affect, A&O x 3 Skin: no rash Deviation from normal: Well-healing surgical scar Dx/Plan (1) Atypical chest pain Code(s): R07.89 - OTHER CHEST PAIN Status: Acute (2) Cirrhosis Code(s): K74.60 - UNSPECIFIED CIRRHOSIS OF LIVER Status: Acute (3) Cocaine abuse Code(s): F14.10 - COCAINE ABUSE, UNCOMPLICATED Status: Acute (4) NSTEMI (non-ST elevated myocardial infarction) Code(s): I21.4 - NON-ST ELEVATION (NSTEMI) MYOCARDIAL INFARCTION Status: Acute (5) Pancytopenia Code(s): D61.818 - OTHER PANCYTOPENIA Status: Acute - Plan Plan: Patient is a 54 y/o male who presents to the ED for evaluation of Chest Pain. 1. NSTEMI, CAD -Substernal chest pain for past year - no known medical history -Multiple risk factors include Tobacco Abuse, EtOH Abuse and Cocaine Abuse -Trops: 3.256 on presentation - trended up to 5.657 -Dr. Barba (Cards): Heart cath revealed 90% stenosis of mid-LAD, 80% stenosis of proximal LCA, 100% occlusion of RCA, currently following -Dr. Dejesus ([facility]): Consulted, performed 2 Vessel CABG on 11/18 and transferred to ICU -Extubated on 11/18 - will plan for PT once tolerated and off of pressors -ASA, Statin, w/ PT/OT/Cardiac Rehab on-board -Fever documented overnight in chart - no reported notification from Resident Night Team -Will investigate further w/ CBC, CMP, UA and serial CXR 2. Elevate BNP -Echo: Pending -Cath: EF 40-45% -Per Cards recs, will follow all PRBC transfusions with Furosemide IV 40 mg 3. Pancytopenia -Likely related to EtOH Abuse -Will continue to monitor closely 4. Microcytic Anemia -S/p 3 units PRBCs -Dr. Cuba (GI): EGD revealed Grade 3 Esophageal Varices, 3 Columns, Portal HTN w/ Erosive Gastritis consulted - started Propranolol -Hg trended from to 7.3 on admission to 11.2 -Hg s/p CABG was 10.5 - will continue to monitor -AM Labs: Pending 5. EtOH Abuse -No evidence of EtOH Withdrawal since admission -ASE Protocol -Will continue to encourage EtOH Abuse cessation 6. Cirrhosis -MELD: 7 (1.9% 3 month mortality) -Child-Olivo: A -HIV, RPR, HepC: Negative -HepA AB: Positive -Will reengage w/ GI for medication optimization and outpatient f/u prior to DC -Will likely hold Beta-Kasey due to Hx of Cocaine Abuse PCP: None Code: Full Diet: Heart Healthy Fluids: SL Dispo: Patient is currently stable and admitted to the Telemetry Floor following NSTEMI, s/p CABG Day 3. Overnight fever is concerning, will evaluate further. Coordinate w/ CVSurg and Cards as needed. GI consulted for EtOH Cirrhosis and Esophageal Varices, will re-engage w/ recs appreciated. Will continue to monitor for signs of EtOH Withdrawal. Expected LOS > 48H. Addendum - Attending - Attending Attestation Date/Time: 11/22/19 [id number] I personally evaluated the patient and discussed the management with Dr. Lane I agree with the History, Examination, Assessment and Plan documented above with any addition or exceptions noted below. Patient is a 54 y/o POD3 from CABG. History alcohol abuse with cirrhosis, MELD 7. Also with history of cocaine abuse. Post-op care after CABG, appreciate CV Surg, Cardiology, GI recs. Monitor ASE scores. Off pressors, cont PT/OT. Fever to 100.9 last night, now resolved, suspect atelectasis, encouraged IC and ambulation. RA Thompson
[2019-11-22] MEDS: Polyethylene Glycol 3350 17 GM Packet PO SCH (08:28)
[2019-11-22] MEDS: Potassium Chloride 10 MEQ TAB PO SCH (08:28)
[2019-11-22] MEDS: Aspirin 325 mg Enteric Coated Tablet PO SCH (08:29)
[2019-11-22] MEDS: Multivitamin W/ Minerals 1 TAB PO SCH (08:29)
[2019-11-22] MEDS: Famotidine 20 MG TAB PO SCH ×2 (08:29→20:45)
[2019-11-22] MEDS: Calcium Carbonate 600 MG + Vit D TAB PO SCH (08:29)
[2019-11-22] MEDS: Ferrous Gluconate 324 MG TAB PO SCH (08:29)
[2019-11-22 09:09] LABS: Anisocytosis MODERATE=16-30 cells (100X) (0-5/hpf); Hemoglobin 9.2 g/dL (14.0-18.0); Hypochromia SLIGHT = 6-15 cells (100X) (0-5/hpf); MDiff Complete? YES; Mean Corpuscular HGB CONC 30.5 g/dL (32.0-36.0); Mean Corpuscular Hemoglobin 22.8 pg (27.0-31.0); Mean Corpuscular Volume 74.7 fL (78.0-98.0); Mean Platelet Volume 7.7 fL (7.4-10.4); Microcytosis MODERATE=15-30 cells (100X) (0-5/hpf); Platelet Count 109 thou/uL (130-400); Platelet Morphology Comment Appears Decreased; Polychromasia SLIGHT = 2-3 cells (100X) (0-2/hpf); RBC Distribution Width 22.3 % (11.5-14.5); Red Blood Cell (RBC) Count 4.05 mill/uL (4.70-6.10); White Blood Cell (WBC) Count 10.7 thou/uL (4.8-10.8)
[2019-11-22 09:12] LABS: ALT (SGPT) 35 U/L (8-55); AST (SGOT) 49 U/L (5-34); Albumin 3.4 g/dL (3.5-5.0); Alkaline Phosphatase 96 U/L (40-110); Anion Gap 10 mmol/L (10-20); BUN (Urea Nitrogen) 8 mg/dL (8.4-25.7); Bilirubin, Total 0.7 mg/dL (0.2-1.2); Calc. Creatinine Clearance 125 mL/min (70-130); Calcium 8.3 mg/dL (7.8-10.44); Carbon Dioxide 25 mmol/L (22-29); Chloride 103 mmol/L (98-107); Estimated GFR-MDRD Greater than 90; Globulin 3.2 g/dL (2.4-3.5); Glucose 107 mg/dL (70-105); Potassium 3.8 mmol/L (3.5-5.1); Protein, Total 6.6 g/dL (6.0-8.3); Sodium 134 mmol/L (136-145)
[2019-11-22 10:26] LABS: Actual Bicarbonate (HCO3a) 20.6 mEq/L (22-28); Base Excess (BEa) -5.4 mEq/L (-2.0 to +3.0); CO2 Tension 42.7 mmHg (35.0-45.0); Hemoglobin (Hb) 7.9 g/dL (14.0-18.0); O2 Tension (PaO2), arterial 338.5 mmHg (80.0-100.0)
[2019-11-22 10:28] LABS: Calcium, Ionized 0.99 mmol/L (1.12-1.30); Potassium - ABG Lab 5.14 mmol/L (3.70-5.30)
[2019-11-22 10:29] LABS: Analyzer IN Cardio OR
[2019-11-22 10:44] LABS: Puncture Site ALINE
[2019-11-22 11:10] VITALS: BMI 29.3
[2019-11-22 11:46] LABS: Bacteria/HPF None Seen HPF (None Seen); Bilirubin Negative (Negative); Blood, Urine Negative (Negative); Clarity Clear (Clear); Glucose, Urine (Dipstick) Normal (Negative); Leukocyte Negative Leu/uL (Negative); Nitrite Negative (Negative); Protein, Urine (Dipstick) Negative (Neg-Trace); RBC/HPF 0-3 HPF (0-3); Squamous Epithelial 0-3 HPF (0-3); Urobilinogen Normal mg/dL (Less than 2); WBC/HPF 0-3 HPF (0-3)
[2019-11-22] MEDS: Furosemide 40 MG TAB PO SCH (13:19)
[2019-11-22] MEDS: Lisinopril 2.5 MG TAB PO SCH (13:20)
--- NOTE | 2019-11-22 17:41 | PDOC.CPN ---
- Subjective Date: 11/22/19 Time: 17:39 Interval history: Doing well. No complaints. Having BM, walking with CR without issues. Had fever overnight. No obvious source yet. - Review of Systems General: reports: fever/chills. denies: weight/appetite/sleep changes, night sweats, fatigue Respiratory: denies: cough, congestion, shortness of breath, exercise intolerance Cardiovascular: denies: chest pain, palpitation, edema, paroxysmal nocturnal dyspnea, orthopnea Gastrointestinal: denies: nausea, vomiting, diarrhea, constipation, abd pain, GI bleeding Musculoskeletal: denies: pain, tenderness, stiffness, swelling, arthritis/ arthralgias Neurological: denies: numbness, syncope, seizure, weakness - Objective Allergies/Adverse Reactions: Allergies Allergy/AdvReac Type Severity Reaction Status Date / Time No Known Allergies Allergy Unverified 11/14/19 21:11 Visit Medications: Current Medications Acetaminophen (Tylenol) 650 mg PO Q6H PRN PRN Reason: Headache/Fever Or Mild Pain Last Admin: 11/22/19 05:12 Dose: 650 mg Hydrocodone Bitart/Acetaminophen ([place] 5/325) 1 tab PO Q4H PRN PRN Reason: Moderate Pain (4-6) Last Admin: 11/21/19 20:07 Dose: 1 tab Hydrocodone Bitart/Acetaminophen ([place] 5/325) 2 tab PO Q4H PRN PRN Reason: Severe Pain (7-10) Al Hydroxide/Mg Hydroxide (Maalox) 30 ml PO Q4H PRN PRN Reason: Indigestion Aspirin (Ecotrin) 325 mg PO DAILY [facility] Last Admin: 11/22/19 08:29 Dose: 325 mg Atorvastatin Calcium (Lipitor) 10 mg PO HS [facility] Last Admin: 11/21/19 20:10 Dose: 10 mg Bisacodyl (Dulcolax) 10 mg PO Q12H PRN PRN Reason: Constipation Bisacodyl (Dulcolax) 10 mg [place] Q12H PRN PRN Reason: Constipation Calcium/Vitamin D (Caltrate 600 + Vit D) 1 tab PO QAM-WM [facility] Last Admin: 11/22/19 08:29 Dose: 1 tab Dextrose/Water (Dextrose 50%) 25 gm SLOW IVP PRN PRN PRN Reason: PER HYPOGLYCEMIC PROTOCOL Famotidine (Pepcid) 20 mg PO BID [facility] Last Admin: 11/22/19 08:29 Dose: 20 mg Ferrous Gluconate (Fergon) 324 mg PO QAM-WM [facility] Last Admin: 11/22/19 08:29 Dose: 324 mg Furosemide (Lasix) 40 mg PO DAILY-AC [facility] Last Admin: 11/22/19 13:19 Dose: Not Given Glucagon (Glucagon) 1 mg SC PRN PRN PRN Reason: PER HYPOGLYCEMIC PROTOCOL Guaifenesin/Dextromethorphan (Robitussin Dm) 15 ml PO Q4H PRN PRN Reason: Cough Dextrose/Water (D5w) 1,000 mls @ 0 mls/hr IV INF PRN PRN Reason: PRN HYPOGLYCEMIC PROTOCOL Iron/Minerals/Multivitamins (Theragran M) 1 tab PO DAILY [facility] Last Admin: 11/22/19 08:29 Dose: 1 tab Lisinopril (Zestril) 2.5 mg PO DAILY [facility] Last Admin: 11/22/19 13:20 Dose: Not Given Mineral Oil (Fleet Mineral Oil) 133 ml [place] DAILYPRN PRN PRN Reason: Constipation Nitroglycerin (Nitrostat) 0.4 mg SL Q5MIN PRN PRN Reason: Chest Pain Ondansetron HCl (Zofran) 4 mg IVP Q6H PRN PRN Reason: Nausea/Vomiting Polyethylene Glycol (Miralax) 17 gm PO DAILY [facility] Last Admin: 11/22/19 08:28 Dose: 17 gm Potassium Chloride (Klor-Con 10) 10 meq PO QAM-[facility] Last Admin: 11/22/19 08:28 Dose: 10 meq Vital Signs & Weight: Vital Signs Temp Pulse Pulse Pulse Resp BP BP 11/22/19 16:26 98.7 F 95 18 11/22/19 11:01 98.8 F 106 H 20 11/22/19 10:43 107 H 95 120/67 96/63 11/22/19 10:15 102/70 11/22/19 10:06 109 H 104 H 109/55 L 84/54 L 11/22/19 08:26 11/22/19 07:45 100.1 F H 104 H 16 BP BP Pulse Ox Pulse Ox Pulse Ox 11/22/19 16:26 103/66 97 11/22/19 11:01 120/67 99 11/22/19 10:43 97 98 05/21/20 10:15 11/22/19 10:06 99 97 11/22/19 08:26 92/56 L 11/22/19 07:45 85/62 L 95 Admit Weight 182 lb 9.6 oz Weight 182 lb - Physical Exam General: alert & oriented x3 HEENT: mucus membranes moist Neck: supple neck Cardiac: regular rate and rhythm Lungs: clear to auscultation Neuro: grossly intact Abdomen: active bowel sounds Extremities: no edema Skin: clear Musculoskeletal: no pain - Labs Result Diagrams: 11/22/19 08:17 11/22/19 08:17 Troponin/CKMB CK-MB (CK-2) 8.5 ng/mL (0-6.6) H* 11/14/19 17:33 Troponin I 5.657 ng/mL (< 0.028) H* 11/15/19 17:51 - Telemetry Sinus rhythms and dysrhythmias: sinus rhythm - Assessment/Plan Assessment/Plan: 1. Severe multivessel CAD. 2. NSTEMI 3. Alcoholic cirrhosis. 4. Substance abuse (cocaine, marihuana) 5. Alcohol abuse 6. Fever. PLAN: - ASA, statin for life. - Advance PT as tolerated. - Continue low dose ACEI. Will not start BB until he has been off cocaine for at least 6 months. - Counselled on cessation of alcohol and substance use. - CV stable. - Fever work up per primary team.
[2019-11-22] MEDS: Atorvastatin Calcium 10 MG TAB PO SCH (20:45)
--- NOTE | 2019-11-23 05:30 | PDOC.FM ---
- Subjective Subjective: Patient was resting comfortably in his bed at the time of evaluation. He denied any acute overnight events. - Objective Vital Signs & Weight: Vital Signs (12 hours) Temp Pulse Resp BP BP Pulse Ox 11/23/19 03:09 99.6 F 104 H 14 99/61 99 11/22/19 19:37 99.6 F 102 H 20 108/68 97 Weight Admit Weight 82.826 kg Weight 80.195 kg Most Recent Monitor Data Heart Rate from ECG 94 NIBP 117/76 NIBP BP-Mean 89 Respiration from ECG 20 SpO2 99 I&O: 11/21/19 11/22/19 11/23/19 06:59 06:59 06:59 Intake Total 1851 1900 1080 Output Total 4332 5717 1900 Balance -564 -595 -820 Result Diagrams: 11/23/19 06:38 11/22/19 08:17 Phys Exam - Physical Examination Constitutional: NAD HEENT: moist MMs, sclera anicteric, oral pharynx no lesions Neck: supple, full ROM Respiratory: no wheezing, no rales, no rhonchi, clear to auscultation bilateral Cardiovascular: RRR, no significant murmur, no rub Gastrointestinal: soft, non-tender, no distention, positive bowel sounds Musculoskeletal: no edema, pulses present Neurological: non-focal, moves all 4 limbs Psychiatric: normal affect Skin: no rash Deviation from normal: Well-healing surgical incision Dx/Plan (1) Atypical chest pain Code(s): R07.89 - OTHER CHEST PAIN Status: Acute (2) Cirrhosis Code(s): K74.60 - UNSPECIFIED CIRRHOSIS OF LIVER Status: Acute (3) Cocaine abuse Code(s): F14.10 - COCAINE ABUSE, UNCOMPLICATED Status: Acute (4) NSTEMI (non-ST elevated myocardial infarction) Code(s): I21.4 - NON-ST ELEVATION (NSTEMI) MYOCARDIAL INFARCTION Status: Acute (5) Pancytopenia Code(s): D61.818 - OTHER PANCYTOPENIA Status: Acute - Plan Plan: Patient is a 54 y/o male who presents to the ED for evaluation of Chest Pain. 1. NSTEMI, CAD -Substernal chest pain for past year - no known medical history -Multiple risk factors include Tobacco Abuse, EtOH Abuse and Cocaine Abuse -Trops: 3.256 on presentation - trended up to 5.657 -Dr. Barba (Cards): Heart cath revealed 90% stenosis of mid-LAD, 80% stenosis of proximal LCA, 100% occlusion of RCA, currently following -Dr. Dejesus ([facility]): Consulted, performed 2 Vessel CABG on 11/18 and transferred to ICU - now on Telemetry Floor -Extubated on 11/18 - PT/OT ongoing now that patient is off pressors -ASA, Statin, w/ PT/OT/Cardiac Rehab on-board -No additional fevers documented overnight - suspect atelectasis as CBC, CMP and UA were unremarkable - will continue to encouraged incentive spirometry 2. Elevate BNP -Echo: Pending -Cath: EF 40-45% -Per Cards recs, will follow all PRBC transfusions with Furosemide IV 40 mg 3. Pancytopenia -Likely related to EtOH Abuse -Will continue to monitor closely 4. Microcytic Anemia -S/p 3 units PRBCs -Dr. Cuba (GI): EGD revealed Grade 3 Esophageal Varices, 3 Columns, Portal HTN w/ Erosive Gastritis -Hg s/p CABG was 10.5 - will continue to monitor -AM Labs: Pending 5. EtOH Abuse -No evidence of EtOH Withdrawal since admission -ASE Protocol -Will continue to encourage EtOH Abuse cessation 6. Cirrhosis -MELD: 7 (1.9% 3 month mortality) -Child-Olivo: A -HIV, RPR, HepC: Negative -HepA AB: Positive -Will reengage w/ GI for medication optimization and outpatient f/u prior to DC -Will likely hold Propranolol due to Hx of Cocaine Abuse - GI recs appreciated PCP: None Code: Full Diet: Heart Healthy Fluids: SL Dispo: Patient is currently stable and admitted to the Telemetry Floor following NSTEMI, s/p CABG Day 4. No additional fevers documented overnight w/ unremarkable lab workup. Coordinate w/ CVSurg and Cards as needed. GI consulted for EtOH Cirrhosis and Esophageal Varices, will re-engage today w/ recs appreciated. Will continue to monitor for signs of EtOH Withdrawal. Expected LOS < 48H. Addendum - Attending - Attending Attestation Date/Time: 11/23/19 0044 I personally evaluated the patient and discussed the management with Dr. Lane I agree with the History, Examination, Assessment and Plan documented above with any addition or exceptions noted below. Patient is a 54 y/o POD4 from CABG. History alcohol abuse with cirrhosis, MELD 7. Also with history of cocaine abuse. Post-op care after CABG, appreciate CV Surg, Cardiology, GI recs. Monitor ASE scores. Off pressors, cont PT/OT. Fever to 100.4. UA negative. Patient asymptomatic. Suspect atelectasis, will check follow up CXR. Consider d/c CVC.
[2019-11-23 07:30] LABS: Hemoglobin 8.3 g/dL (14.0-18.0); Mean Corpuscular HGB CONC 29.2 g/dL (32.0-36.0); Mean Corpuscular Hemoglobin 22.4 pg (27.0-31.0); Mean Corpuscular Volume 76.6 fL (78.0-98.0); Mean Platelet Volume 7.6 fL (7.4-10.4); Platelet Count 100 thou/uL (130-400); RBC Distribution Width 22.8 % (11.5-14.5); Red Blood Cell (RBC) Count 3.72 mill/uL (4.70-6.10); White Blood Cell (WBC) Count 6.7 thou/uL (4.8-10.8)
[2019-11-23 08:39] LABS: Actual Bicarbonate (HCO3a) 21.4 mEq/L (22-28); Base Excess (BEa) -3.6 mEq/L (-2.0 to +3.0); CO2 Tension 38.3 mmHg (35.0-45.0); Hemoglobin (Hb) 8.4 g/dL (14.0-18.0); O2 Tension (PaO2), arterial 352.7 mmHg (80.0-100.0); pH, Arterial 7.37 (7.35-7.45)
[2019-11-23 08:40] LABS: Calcium, Ionized 0.99 mmol/L (1.12-1.30); Carboxyhemoglobin (COHb) 1.3 gm% (0.0-3.0); Potassium - ABG Lab 4.42 mmol/L (3.70-5.30)
[2019-11-23 08:41] LABS: Analyzer IN Cardio OR
[2019-11-23 08:42] LABS: Actual Bicarbonate (HCO3a) 20.4 mEq/L (22-28); CO2 Tension 36.3 mmHg (35.0-45.0); pH, Arterial 7.37 (7.35-7.45)
[2019-11-23 08:43] LABS: Base Excess (BEa) -4.4 mEq/L (-2.0 to +3.0); Carboxyhemoglobin (COHb) 0.3 gm% (0.0-3.0); Hemoglobin (Hb) 10.5 g/dL (14.0-18.0)
[2019-11-23 08:44] LABS: Analyzer IN Cardio OR; Calcium, Ionized 1.09 mmol/L (1.12-1.30)
[2019-11-23 08:46] LABS: Actual Bicarbonate (HCO3a) 21.7 mEq/L (22-28); Base Excess (BEa) -2.4 mEq/L (-2.0 to +3.0); CO2 Tension 34.8 mmHg (35.0-45.0); O2 Tension (PaO2), arterial 445.2 mmHg (80.0-100.0); pH, Arterial 7.41 (7.35-7.45)
[2019-11-23 08:47] LABS: Analyzer IN Cardio OR; Calcium, Ionized 1.14 mmol/L (1.12-1.30); Carboxyhemoglobin (COHb) 0.6 gm% (0.0-3.0); Hemoglobin (Hb) 11.4 g/dL (14.0-18.0); Potassium - ABG Lab 3.78 mmol/L (3.70-5.30)
[2019-11-23 08:50] LABS: Actual Bicarbonate (HCO3a) 21.1 mEq/L (22-28); Base Excess (BEa) -3.8 mEq/L (-2.0 to +3.0); CO2 Tension 37.5 mmHg (35.0-45.0); Carboxyhemoglobin (COHb) 1.2 gm% (0.0-3.0); Hemoglobin (Hb) 7.4 g/dL (14.0-18.0); O2 Tension (PaO2), arterial 205.6 mmHg (80.0-100.0); pH, Arterial 7.37 (7.35-7.45)
[2019-11-23 08:51] LABS: Analyzer IN Cardio OR; Calcium, Ionized 1.08 mmol/L (1.12-1.30); Potassium - ABG Lab 4.63 mmol/L (3.70-5.30)
[2019-11-23 08:53] LABS: Actual Bicarbonate (HCO3a) 17.5 mEq/L (22-28); Base Excess (BEa) -8.3 mEq/L (-2.0 to +3.0); CO2 Tension 37.3 mmHg (35.0-45.0); Carboxyhemoglobin (COHb) 0.5 gm% (0.0-3.0); Hemoglobin (Hb) 10.7 g/dL (14.0-18.0); O2 Tension (PaO2), arterial 106.5 mmHg (80.0-100.0); pH, Arterial 7.29 (7.35-7.45)
[2019-11-23 08:54] LABS: Analyzer IN Cardio OR; Potassium - ABG Lab 4.51 mmol/L (3.70-5.30)
[2019-11-23] MEDS: Famotidine 20 MG TAB PO SCH ×2 (08:55→21:39)
[2019-11-23] MEDS: Acetaminophen 325 MG TAB PO PRN (08:55)
[2019-11-23] MEDS: Aspirin 325 mg Enteric Coated Tablet PO SCH (08:55)
[2019-11-23] MEDS: Ferrous Gluconate 324 MG TAB PO SCH (08:55)
[2019-11-23] MEDS: Multivitamin W/ Minerals 1 TAB PO SCH (08:55)
[2019-11-23] MEDS: Polyethylene Glycol 3350 17 GM Packet PO SCH (08:55)
[2019-11-23] MEDS: Potassium Chloride 10 MEQ TAB PO SCH (08:55)
[2019-11-23] MEDS: Calcium Carbonate 600 MG + Vit D TAB PO SCH (08:55)
[2019-11-23] MEDS: Lisinopril 2.5 MG TAB PO SCH (08:56)
[2019-11-23] MEDS: Furosemide 40 MG TAB PO SCH (08:56)
--- NOTE | 2019-11-23 10:44 | RAD ---
EXAM: Chest PA and lateral: HISTORY: Postoperative fever. COMPARISON: 11/21/2019 FINDINGS: Lines and tubes: Stable right-sided central venous catheter terminating in the right atrium. Stable v ascular rings and sternotomy wires. Heart: Cardiomegaly. Aorta: Unremarkable Pulmonary vessels: Normal Costophrenic angles: Small left-sided pleural effusion. Lungs: Parenchymal changes left lung base. Pneumothorax: No pneumothorax Osseous structures: No osseous abnormalities IMPRESSION: Pleural and parenchymal changes left lung base. Continued surveillance to ensure resolution.
--- NOTE | 2019-11-23 14:21 | PDOC.CPN ---
- Subjective Date: 11/23/19 Time: 14:19 Interval history: No new issues. Spiked a fever this morning, no obvious source. - Review of Systems General: denies: fever/chills, weight/appetite/sleep changes, night sweats, fatigue Respiratory: denies: cough, congestion, shortness of breath, exercise intolerance Cardiovascular: denies: chest pain, palpitation, edema, paroxysmal nocturnal dyspnea, orthopnea Gastrointestinal: denies: nausea, vomiting, diarrhea, constipation, abd pain, GI bleeding Musculoskeletal: denies: pain, tenderness, stiffness, swelling, arthritis/ arthralgias Neurological: denies: numbness, syncope, seizure, weakness - Objective Allergies/Adverse Reactions: Allergies Allergy/AdvReac Type Severity Reaction Status Date / Time No Known Allergies Allergy Unverified 11/14/19 21:11 Visit Medications: Current Medications Acetaminophen (Tylenol) 650 mg PO Q6H PRN PRN Reason: Headache/Fever Or Mild Pain Last Admin: 11/23/19 08:55 Dose: 650 mg Hydrocodone Bitart/Acetaminophen ([place] 5/325) 1 tab PO Q4H PRN PRN Reason: Moderate Pain (4-6) Last Admin: 11/21/19 20:07 Dose: 1 tab Hydrocodone Bitart/Acetaminophen ([place] 5/325) 2 tab PO Q4H PRN PRN Reason: Severe Pain (7-10) Al Hydroxide/Mg Hydroxide (Maalox) 30 ml PO Q4H PRN PRN Reason: Indigestion Aspirin (Ecotrin) 325 mg PO DAILY [facility] Last Admin: 11/23/19 08:55 Dose: 325 mg Atorvastatin Calcium (Lipitor) 10 mg PO HS [facility] Last Admin: 11/22/19 20:45 Dose: 10 mg Bisacodyl (Dulcolax) 10 mg PO Q12H PRN PRN Reason: Constipation Bisacodyl (Dulcolax) 10 mg [place] Q12H PRN PRN Reason: Constipation Calcium/Vitamin D (Caltrate 600 + Vit D) 1 tab PO QAM-WM [facility] Last Admin: 11/23/19 08:55 Dose: 1 tab Dextrose/Water (Dextrose 50%) 25 gm SLOW IVP PRN PRN PRN Reason: PER HYPOGLYCEMIC PROTOCOL Famotidine (Pepcid) 20 mg PO BID [facility] Last Admin: 11/23/19 08:55 Dose: 20 mg Ferrous Gluconate (Fergon) 324 mg PO [facility]AM[facility] Last Admin: 11/23/19 08:55 Dose: 324 mg Furosemide (Lasix) 40 mg PO DAILY-AC [facility] Last Admin: 11/23/19 08:56 Dose: Not Given Glucagon (Glucagon) 1 mg SC PRN PRN PRN Reason: PER HYPOGLYCEMIC PROTOCOL Guaifenesin/Dextromethorphan (Robitussin Dm) 15 ml PO Q4H PRN PRN Reason: Cough Dextrose/Water (D5w) 1,000 mls @ 0 mls/hr IV INF PRN PRN Reason: PRN HYPOGLYCEMIC PROTOCOL Iron/Minerals/Multivitamins (Theragran M) 1 tab PO DAILY [facility] Last Admin: 11/23/19 08:55 Dose: 1 tab Lisinopril (Zestril) 2.5 mg PO DAILY [facility] Last Admin: 11/23/19 08:56 Dose: Not Given Mineral Oil (Fleet Mineral Oil) 133 ml [place] DAILYPRN PRN PRN Reason: Constipation Nitroglycerin (Nitrostat) 0.4 mg SL Q5MIN PRN PRN Reason: Chest Pain Ondansetron HCl (Zofran) 4 mg IVP Q6H PRN PRN Reason: Nausea/Vomiting Polyethylene Glycol (Miralax) 17 gm PO DAILY [facility] Last Admin: 11/23/19 08:55 Dose: 17 gm Potassium Chloride (Klor-Con 10) 10 meq PO [facility] Last Admin: 11/23/19 08:55 Dose: 10 meq Vital Signs & Weight: Vital Signs Temp Pulse Pulse Pulse Resp BP BP 11/23/19 13:12 103 H 95 114/66 123/70 11/23/19 11:56 97.9 F 94 18 11/23/19 09:07 108 H 105 H 130/77 108/72 11/23/19 07:22 100.4 F H 104 H 18 11/23/19 03:09 99.6 F 104 H 14 BP BP Pulse Ox Pulse Ox Pulse Ox 11/23/19 13:12 11/23/19 11:56 110/65 97 11/23/19 09:07 98 97 11/23/19 07:22 93/54 L 95 11/23/19 03:09 99/61 99 Admit Weight 182 lb 9.6 oz Weight 176 lb 12.8 oz - Physical Exam General: alert & oriented x3 HEENT: mucus membranes moist Neck: supple neck Cardiac: regular rate and rhythm Lungs: normal breath sounds Neuro: grossly intact Abdomen: active bowel sounds Extremities: no edema Skin: clear Musculoskeletal: no pain - Labs Result Diagrams: 11/23/19 06:38 11/22/19 08:17 Troponin/CKMB CK-MB (CK-2) 8.5 ng/mL (0-6.6) H* 11/14/19 17:33 Troponin I 5.657 ng/mL (< 0.028) H* 11/15/19 17:51 - Telemetry Sinus rhythms and dysrhythmias: sinus rhythm - Assessment/Plan Assessment/Plan: 1. Severe multivessel CAD. 2. NSTEMI 3. Alcoholic cirrhosis. 4. Substance abuse (cocaine, marihuana) 5. Alcohol abuse 6. Fever. PLAN: - ASA, statin for life. - Advance PT as tolerated. - Continue low dose ACEI. Will not start BB until he has been off cocaine for at least 6 months. - Counselled on cessation of alcohol and substance use. - CV stable. - Fever work up per primary team negative so far.
[2019-11-23] MEDS: Atorvastatin Calcium 10 MG TAB PO SCH (21:39)
--- NOTE | 2019-11-24 05:57 | PDOC.FM ---
- Subjective Subjective: Patient was resting comfortably in bed at the time of evaluation. He denied any acute overnight events, particularly with regard to chest pain, SOB, ABD pain, N /V/D or dysuria. - Objective Vital Signs & Weight: Vital Signs (12 hours) Temp Pulse Resp BP BP Pulse Ox 11/24/19 03:06 99.9 F H 112 H 18 109/68 97 11/23/19 23:19 98.7 F 11/23/19 19:21 98.3 F 98 20 125/77 98 Weight Admit Weight 82.826 kg Weight 80.694 kg Most Recent Monitor Data Heart Rate from ECG 94 NIBP 117/76 NIBP BP-Mean 89 Respiration from ECG 20 SpO2 99 I&O: 11/22/19 11/23/19 11/24/19 06:59 06:59 06:59 Intake Total 1900 1810 2038 Output Total 2495 3600 3200 Balance -595 -1790 -1162 Result Diagrams: 11/23/19 06:38 11/22/19 08:17 Phys Exam - Physical Examination Constitutional: NAD HEENT: moist MMs, sclera anicteric, oral pharynx no lesions Neck: supple, full ROM Respiratory: no wheezing, no rales, no rhonchi, clear to auscultation bilateral Cardiovascular: RRR, no significant murmur, no rub Gastrointestinal: soft, non-tender, no distention, positive bowel sounds Musculoskeletal: no edema, pulses present Neurological: non-focal, moves all 4 limbs Psychiatric: normal affect Deviation from normal: Well-healing surgical incision sites Dx/Plan (1) Atypical chest pain Code(s): R07.89 - OTHER CHEST PAIN Status: Acute (2) Cirrhosis Code(s): K74.60 - UNSPECIFIED CIRRHOSIS OF LIVER Status: Acute (3) Cocaine abuse Code(s): F14.10 - COCAINE ABUSE, UNCOMPLICATED Status: Acute (4) NSTEMI (non-ST elevated myocardial infarction) Code(s): I21.4 - NON-ST ELEVATION (NSTEMI) MYOCARDIAL INFARCTION Status: Acute (5) Pancytopenia Code(s): D61.818 - OTHER PANCYTOPENIA Status: Acute - Plan Plan: Patient is a 54 y/o male who presents to the ED for evaluation of Chest Pain. 1. NSTEMI, CAD -Substernal chest pain for past year - no known medical history -Multiple risk factors include Tobacco Abuse, EtOH Abuse and Cocaine Abuse -Trops: 3.256 on presentation - trended up to 5.657 -Dr. Barba (Cards): Heart cath revealed 90% stenosis of mid-LAD, 80% stenosis of proximal LCA, 100% occlusion of RCA, currently following -Dr. Dejesus ([facility]): Consulted, performed 2 Vessel CABG on 11/18 and transferred to ICU - now on Telemetry Floor -Extubated on 11/18 - PT/OT ongoing now that patient is off pressors -ASA, Statin, w/ PT/OT/Cardiac Rehab on-board -No additional fevers documented overnight - suspect atelectasis as CBC, CMP and UA were unremarkable - will continue to encouraged incentive spirometry 2. Elevate BNP -Echo: Pending -Cath: EF 40-45% -Per Cards recs, will follow all PRBC transfusions with Furosemide IV 40 mg 3. Pancytopenia -Likely related to EtOH Abuse -Will continue to monitor closely 4. Microcytic Anemia -S/p 3 units PRBCs -Dr. Cuba (GI): EGD revealed Grade 3 Esophageal Varices, 3 Columns, Portal HTN w/ Erosive Gastritis -Hg s/p CABG was 10.5 - will continue to monitor -AM Labs: Pending 5. EtOH Abuse -No evidence of EtOH Withdrawal since admission -ASE Protocol -Will continue to encourage EtOH Abuse cessation 6. Cirrhosis -MELD: 7 (1.9% 3 month mortality) -Child-Olivo: A -HIV, RPR, HepC: Negative -HepA AB: Positive -Will reengage w/ GI for medication optimization and outpatient f/u prior to DC -Will likely hold Propranolol due to Hx of Cocaine Abuse - GI recs appreciated PCP: None Code: Full Diet: Heart Healthy Fluids: SL Dispo: Patient is currently stable and admitted to the Telemetry Floor following NSTEMI, s/p CABG Day 5. No additional fevers documented overnight w/ unremarkable lab workup. Coordinate w/ [facility] and Cards as needed. GI consulted for EtOH Cirrhosis and Esophageal Varices, will plan for follow-up as an outpatient. Will likely DC today w/ Outpatient Cardiac Rehab. Expected LOS < 24H. Addendum - Attending - Attending Attestation Date/Time: 11/24/19 [id number] I personally evaluated the patient and discussed the management with Dr. Lane I agree with the History, Examination, Assessment and Plan documented above with any addition or exceptions noted below. Patient is a 54 y/o POD5 from CABG. History alcohol abuse with cirrhosis, MELD 7. Also with history of cocaine abuse. Post-op care after CABG, appreciate CV Surg, Cardiology, GI recs. Patient will d/c home today. Reviewed precautions and cardiac rehab instructions. No BB per cardiology recs. Coronavirus risk stressed.
[2019-11-24] MEDS ORDERED: Propranolol HCl 20 MG TAB PO SCH ×2 (07:45→09:00)
[2019-11-24] MEDS: Furosemide 40 MG TAB PO SCH (09:05)
[2019-11-24] MEDS: Multivitamin W/ Minerals 1 TAB PO SCH (09:08)
[2019-11-24] MEDS: Aspirin 325 mg Enteric Coated Tablet PO SCH (09:08)
[2019-11-24] MEDS: Potassium Chloride 10 MEQ TAB PO SCH (09:08)
[2019-11-24] MEDS: Calcium Carbonate 600 MG + Vit D TAB PO SCH (09:08)
[2019-11-24] MEDS: Polyethylene Glycol 3350 17 GM Packet PO SCH (09:08)
[2019-11-24] MEDS: Famotidine 20 MG TAB PO SCH (09:08)
[2019-11-24] MEDS: Ferrous Gluconate 324 MG TAB PO SCH (09:08)
[2019-11-24 09:42] LABS: Hemoglobin 8.9 g/dL (14.0-18.0); Mean Corpuscular HGB CONC 28.6 g/dL (32.0-36.0); Mean Corpuscular Volume 77.1 fL (78.0-98.0); Mean Platelet Volume 12.2 fL (7.4-10.4); Platelet Count 125 thou/uL (130-400); RBC Distribution Width 22.9 % (11.5-14.5); Red Blood Cell (RBC) Count 4.05 mill/uL (4.70-6.10); White Blood Cell (WBC) Count 7.9 thou/uL (4.8-10.8)
[2019-11-24 12:09] VITALS: TEMP 98.4
[2019-11-24] MEDS: Lisinopril 2.5 MG TAB PO SCH (12:17)
[2019-11-24 13:57] VITALS: BP 100/64
--- NOTE | 2019-11-25 09:39 | DIS ---
DATE OF ADMISSION: 11/14/2019 DATE OF DISCHARGE: 11/24/2019 ADMITTING ATTENDING: Massimo Beach MD DISCHARGE ATTENDING: Ren Thompson MD. CONSULTATIONS: 1. Dr. Edin Barba, Cardiology. 2. Dr. Lazarus Dejesus, Cardiovascular Surgery. 3. Dr. Oli Cuba, Gastroenterology. 4. Dr. Chacha Bettencourt, Cardiology. PROCEDURES: 1. Chest x-ray revealing cardiomegaly with patchy airspace opacities in both lower lungs that may reflect atypical infection versus less likely edema. 2. Chest thorax CTA revealing no central or segmental pulmonary embolus. Findings suspicious for mild CHF, nonspecific mildly enlarged mediastinal lymph nodes, cirrhotic morphology of liver with changes suggestive of portal hypertension. 3. Heart catheterization revealing severe disease in the mid left anterior descending, as well as severe disease in the ostial D1 and left circumflex as well as an occluded right coronary artery. Left ventricular ejection fraction was estimated to be 40% to 45%. 4. Abdominal ultrasound revealing cirrhosis of the liver and a contracted gallbladder. 5. Esophagogastroduodenoscopy resulting in a finding of large grade 3 esophageal varices with 3 columns. No red signs or stigmata of recent bleeding. Portal hypertensive gastropathy with erosive antral gastritis, friable, although there was no active bleeding. 6. Coronary artery bypass graft performed on 11/19/2019. PRIMARY DIAGNOSIS: Non-ST elevation myocardial infarction type 1. SECONDARY DIAGNOSES: 1. Alcoholic cirrhosis. esophageal varices. 2. Pancytopenia. 3. Microcytic anemia. 4. History of alcohol abuse. 5. History of polysubstance abuse, most notably cocaine. DISCHARGE MEDICATIONS: 1. Aspirin 325 mg p.o. daily. 2. Atorvastatin 10 mg p.o. daily. 3. Benzonatate 100 mg p.o. t.i.d. p.r.n. 4. Ferrous gluconate 324 mg p.o. daily. 5. Lisinopril 2.5 mg p.o. daily. 6. Omeprazole 20 mg p.o. daily. 7. Propranolol 20 mg p.o. b.i.d. 8. Tramadol 1-2 tabs p.o. q.8 hours p.r.n., 40 tablets dispensed. HISTORY OF PRESENT ILLNESS AND HOSPITAL COURSE: The patient is a 54-year-old male, who had not seen a doctor in over 20 years, who presented to the emergency department with chief complaint of chest pain. He stated the pain first started about a year ago, had been intermittent since then. He states the pain is epigastric in nature and believed it was indigestion at first. He denied radiation of the pain and stated it is pressure. It sometimes is made worse with exertion. He reports associated shortness of breath and blurry vision with the pain. He often would try to tolerate Pepto-Bismol, but noted this provided little relief. He presented to the ED because of frequency and pain had been increasing daily. He denied relevant family history of heart disease, but he did report daily drinking, smoking marijuana, cigarettes as well as cocaine abuse. The last time he used cocaine was the day prior to presentation. In the emergency department, he was given 324 mg aspirin and started on Lovenox, therapeutic range 1 mg/kg. He was subsequently transferred to the telemetry unit. He received a heart catheterization the following day with results listed elsewhere in this document and was subsequently referred to cardiovascular surgery who performed a 2 vessel coronary artery bypass graft as noted elsewhere in this document. Additionally because of the incidental finding of a cirrhotic liver, the patient underwent an esophagogastroduodenoscopy, the results of which are listed elsewhere in this document. The patient recovered well and was subsequently extubated following his coronary artery bypass graft on 11/19/2019 and transferred back to the telemetry unit. He underwent physical therapy, occupational therapy and was counseled on the importance of alcohol, tobacco, and substance abuse cessation. He underwent cardiac rehab and was subsequently cleared for discharge by cardiovascular surgery, cardiology and GI with the medication regimen listed above. Prior to discharge, the patient's vital signs were recorded as pulse 83 beats per minute, blood pressure 100/64, respirations 18 per minute, oxygen saturation 96% on room air, temperature 98.4. LABORATORY ANALYSIS: Revealed a white blood cell count of 7.9, hemoglobin 8.9, hematocrit 31.3, platelet count 125. Coag panel revealed a PT of 16.6, INR of 1.3, APTT of 34.9, blood gas revealed a pH of 7.36, pCO2 of 39.5, pO2 of 93.9, and base excess of -3.4. Chem panel revealed a sodium of 34, potassium 3.8, chloride 103, carbon dioxide 25, BUN 8, creatinine 0.79, glucose 107, calcium 8.3, phosphorus 3.8, magnesium 2.1, iron 16, TIBC 425, ferritin 5.64, total bilirubin 0.7, AST 49, ALT 35, alkaline phosphatase 96, creatine kinase 312. Alpha-1 antitrypsin level 166, read as normal. Triglycerides 86, cholesterol 118, HDL 31, LDL 70, lipase 48. Tumor marker AFP 3.4 with a normal range of 0.89 to 8.17. Urinalysis was affectively normal with a light yellow color, clear clarity of pH 5.5, no ketones, no blood, no nitrites, no bilirubin, normal amounts of urobilinogen, no leukocyte esterase, 0-3 rbcs, 0-3 wbcs, 0-3 squamous epithelial cells and no bacteria noted. Toxicology reported, positive cocaine and cannabinoid screen. Immunology revealed a normal level of antimitochondrial antibody as well as a normal level of smooth muscle antibody. Serology indicated nonreactive syphilis IgG, IgM antibody tests, however, there was a positive hepatitis A antibody test indicating distant infection. Hepatitis B antigen, hepatitis B antibody, hepatitis B antibody index were all unremarkable as was hepatitis C and the HIV antigen and antibody exam. DISPOSITION: Stable. DISCHARGE INSTRUCTIONS: 1. Location: Home. 2. Diet: Heart healthy. 3. Activity: Lifting restrictions. No greater than 20 pounds. Activity as tolerated as dictated by cardiac rehabilitation PT and OT. 4. Followup: The patient was encouraged to follow up with Dr. Lazarus Dejesus on December 11, [address] Edin Barba on December 14, [address] Oli Cuba in approximately 3 to 4 weeks to discuss ongoing management of alcoholic cirrhosis with esophageal varices. Additionally, the patient was encouraged to establish care at [facility] in [place], [place], as well as participate in outpatient cardiac rehab with an appointment pending on 12/07/2019. Prior to discharge, the patient appeared stable and was adequately placed on appropriate medications for coronary artery disease, history of myocardial infarction, and alcoholic cirrhosis. However, it was impressed upon the patient of the importance of alcohol, tobacco, and substance abuse cessation. The patient endorsed understanding of the importance of these requirements and indicated that he intended to follow up as planned with his specialist and rehab plan. Job ID: [id number]
--- NOTE | 2019-11-27 02:07 | PQF ---
REN Brown MD [id number] CLINICAL DOCUMENTATION CLARIFICATION FORM: POST DISCHARGE Addendum to original discharge summary date: ____ Late entry note date: __ DATE: 11/27/2019 ATTN: Ren Thompson Please exercise your independent, professional judgment in responding to the clarification form. Clinical indicators are provided on the bottom of this form for your review Please check appropriate box(s) to clarify if the following diagnosis has been ruled in or ruled out: Acute on Chronic CHF [ ] Ruled in diagnosis [ ] Continue to treat [ ] Resolved [ ] Ruled out diagnosis [ ] Cannot rule out diagnosis [ ] Other diagnosis [ ] Unable to determine If ruled in please specify type: [ ] Systolic [ ] Diastolic [ ] Combined [ ] Unspecified In addition, please specify: Present on Admission (POA): [ ] Yes [ ] No [ ] Unable to determine For continuity of documentation, please document condition throughout progress notes and discharge summary. Thank You. CLINICAL INDICATORS - SIGNS / SYMPTOMS / LABS Consult 11/14 "acute on chronic systolic vs. diastolic heart failure probably mild" 11/13 "elevated BNP may be strain related to NSTEMI" HP 11/13 "pitting edema to mid calf" Chest Xray 11/13 "Findings suspicious for mild CHF" Chest Xray 11/13 "small bilateral pleural effusions" DS 11/23 "cardiomegaly" DS 11/23 "EF 405-45%" Labs BNP: 1206.3 RISK FACTORS Alcohol abuse-HP 11/13 Smoker-HP 11/13 NSTEMI-HP 11/13 Cirrhosis-HP 11/13 Cocaine abuse-HP 11/13 Marijuana abuse-HP 11/13 HTN-Anesthesia 11/16 HLD-Anesthesia 11/16 Cardiomyopathy-Anesthesia 11/16 CAD-Anesthesia 11/16 TREATMENTS Echocardiogram-Collected 11/13 Chest Xray-Collected 11/13 LHC-Collected 11/13 CABG-OP Note 11/18 Cardiology consult-DS 11/23 Lasix 40mg IV-MAR 11/14 (This form is maintained as a part of the permanent medical record) 2014 [employer], [employer]. All Rights Reserved [employer]
--- NOTE | 2019-11-27 02:12 | PQF ---
REN Brown MD [id number] CLINICAL DOCUMENTATION CLARIFICATION FORM: POST DISCHARGE Addendum to original discharge summary date: ____ Late entry note date: __ DATE: 11/27/2019 ATTN:Ren Thompson Please exercise your independent, professional judgment in responding to the clarification form. Clinical indicators are provided on the bottom of this form for your review Please check appropriate box(s) to clarify if the following diagnosis has been ruled in or ruled out: Antral Gastritis with bleeding [ ] Ruled in diagnosis [ ] Continue to treat [ ] Resolved [ ] Ruled out diagnosis [ ] Cannot rule out diagnosis [ ] Other diagnosis [ ] Unable to determine For continuity of documentation, please document condition throughout progress notes and discharge summary. Thank You. CLINICAL INDICATORS - SIGNS / SYMPTOMS / LABS OP Note 11/16 "antral gastritis could be a chronic bleeding source to explain his iron def. anemia" DS 11/23 "there was no active bleeding" Labs 11/19: RBC=3.84 hgb=8.5 Hct=28.9 RISK FACTORS Alcohol abuse-HP 11/13 Smoker-HP 11/13 Cirrhosis-HP 11/13 Cocaine abuse-HP 11/13 Marijuana abuse-HP 11/13 Esophageal varices-DS 11/23 portal hypertensive gastropathy-DS 11/23 Erosive gastritis-DS 11/23 Iron def anemia-DS 11/23 TREATMENTS Gastroenterology consult-11/23 EGD-11/23 Blood transfusion-11/18 Protonix 40mg IV-SEP 05 IVF-SEP 05 (This form is maintained as a part of the permanent medical record) 2014 [employer]. All Rights Reserved [email or web address] [phone] [facility] CENTERArmond
== END 2019-11-24 15:30 | disposition home or self-care (01) | DRG 234 ==
LOC: ERS 17:15 → 2NO 21:23 → CCU 11-19 08:51 → 2NO 11-21 09:24
PROVIDERS: ADMIT Emergency Medicine; ATTEND Emergency Medicine
PROC: 30233N1 Transfusion of Nonautologous Red Blood Cells into Peripheral Vein, Percutaneous Approach (ICD-10-PCS; 2019-11-15)
PROC: 4A023N7 Measurement of Cardiac Sampling and Pressure, Left Heart, Percutaneous Approach (ICD-10-PCS; principal; 2019-11-16)
PROC: B2111ZZ Fluoroscopy of Multiple Coronary Arteries using Low Osmolar Contrast (ICD-10-PCS; 2019-11-16)
PROC: B2151ZZ Fluoroscopy of Left Heart using Low Osmolar Contrast (ICD-10-PCS; 2019-11-16)
PROC: 4A033BC Measurement of Arterial Pressure, Coronary, Percutaneous Approach (ICD-10-PCS; 2019-11-16)
PROC: 0DJ08ZZ Inspection of Upper Intestinal Tract, Via Natural or Artificial Opening Endoscopic (ICD-10-PCS; 2019-11-17)
PROC: 02100Z9 Bypass Coronary Artery, One Artery from Left Internal Mammary, Open Approach (ICD-10-PCS; 2019-11-19)
PROC: 021209W Bypass Coronary Artery, Three Arteries from Aorta with Autologous Venous Tissue, Open Approach (ICD-10-PCS; 2019-11-19)
PROC: 06BN4ZZ Excision of Left Femoral Vein, Percutaneous Endoscopic Approach (ICD-10-PCS; 2019-11-19)
PROC: 5A1221Z Performance of Cardiac Output, Continuous (ICD-10-PCS; 2019-11-19)
PROC: 3E043XZ Introduction of Vasopressor into Central Vein, Percutaneous Approach (ICD-10-PCS; 2019-11-19)
PROC: 30233R1 Transfusion of Nonautologous Platelets into Peripheral Vein, Percutaneous Approach (ICD-10-PCS; 2019-11-19)
DX: I21.4 Non-ST elevation (NSTEMI) myocardial infarction (principal); D61.818 Other pancytopenia; I85.00 Esophageal varices without bleeding; K76.6 Portal hypertension; J98.11 Atelectasis; F14.10 Cocaine abuse, uncomplicated; F12.10 Cannabis abuse, uncomplicated; F10.10 Alcohol abuse, uncomplicated; F17.210 Nicotine dependence, cigarettes, uncomplicated; D50.9 Iron deficiency anemia, unspecified; I25.10 Atherosclerotic heart disease of native coronary artery without angina pectoris; K25.9 Gastric ulcer, unspecified as acute or chronic, without hemorrhage or perforation; K31.89 Other diseases of stomach and duodenum; E78.5 Hyperlipidemia, unspecified; E16.2 Hypoglycemia, unspecified; I25.5 Ischemic cardiomyopathy; K70.30 Alcoholic cirrhosis of liver without ascites; Z79.82 Long term (current) use of aspirin; Z79.899 Other long term (current) drug therapy; I25.2 Old myocardial infarction; K29.70 Gastritis, unspecified, without bleeding; I11.0 Hypertensive heart disease with heart failure; I50.9 Heart failure, unspecified
CPT/HCPCS: 36415; 36416; 36430; 71045; 71046; 71275; 76705; 80048; 80053; 80061; 80306; 80307; 81001; 82040; 82103; 82104; 82105; 82550; 82553; 82728; 82805; 83516; 83540; 83550; 83690; 83735; 83880; 84100; 84484; 85014; 85018; 85025; 85027; 85046; 85060; 85610; 85730; 86706; 86708; 86780; 86803; 86850; 86900; 86901; 87340; 87389; 93005; 93010; 93306; 93458; 93798; 94002; 94150; 94640; 94760; 96372; 99152; 99153; C1769; C9113; J0690; J1265; J1642; J1644; J1650; J1815; J1885; J1940; J2001; J2250; J2405; J2440; J2704; J2720; J3010; J3370; J3411; J3475; J3480; J3490; J7120; J7620; P9016; P9035; P9045; Q9967; S0017; S0028

== ENCOUNTER 2024-01-20 06:18 | Emergency (ER) | payer SELFPAY ==
[2024-01-20 09:13] LABS: ALT (SGPT) 47 U/L (8-55); AST (SGOT) 101 U/L (5-34); Albumin 3.6 g/dL (3.5-5.0); Alkaline Phosphatase 121 U/L (40-110); Anion Gap 10 mmol/L (10-20); BUN (Urea Nitrogen) 5 mg/dL (8.4-25.7); Bilirubin, Total 1.5 mg/dL (0.2-1.2); Calc. Creatinine Clearance 0 mL/min (70-130); Calcium 8.5 mg/dL (7.8-10.44); Carbon Dioxide 26 mmol/L (22-29); Chloride 107 mmol/L (98-107); Estimated GFR 105; Globulin 3.8 g/dL (2.4-3.5); Glucose 121 mg/dL (70-105); Potassium 3.9 mmol/L (3.5-5.1); Protein, Total 7.4 g/dL (6.0-8.3); Sodium 139 mmol/L (136-145)
[2024-01-20 09:49] LABS: #Basophils Less than 0.03 10x3/uL (0.0-0.2); #Eosinphils Less than 0.03 10x3/uL (0.0-0.7); %Basophils 0.2 % (0.0-1.0); %Eosinophils 0.5 % (0.0-10.0); %Lymphocytes 23.2 % (21.0-51.0); %Monocytes 9.1 % (0.0-10.0); %Neutrophils 66.8 % (42.0-75.0); Hematocrit 42.2 % (42.0-52.0); Hemoglobin 14.6 g/dL (14.0-18.0); Mean Corpuscular HGB CONC 34.6 g/dL (32.0-36.0); Mean Corpuscular Hemoglobin 35.7 pg (27.0-31.0); Mean Corpuscular Volume 103.2 fL (78.0-98.0); Mean Platelet Volume 11.8 fL (7.4-10.4); Platelet Adequacy Comment Significant Decrease; Platelet Count 52 10x3/uL (130-400); RBC Distribution Width 13.9 % (11.5-14.5); RBC Morphology Within Normal Limits; Red Blood Cell (RBC) Count 4.09 mill/uL (4.70-6.10)
[2024-01-20 15:44] LABS: Troponin I 0.037 ng/mL (< 0.028)
== END 2024-01-20 16:36 | disposition home or self-care (01) ==
LOC: SUATTDRO 06:18 → ERS 06:18
PROVIDERS: ADMIT Internal Medicine; ATTEND Internal Medicine
DX: F41.9 Anxiety disorder, unspecified (principal); F14.10 Cocaine abuse, uncomplicated; F17.210 Nicotine dependence, cigarettes, uncomplicated
CPT/HCPCS: 36415; 71045; 80053; 84484; 85025; 93005; 96374; J2060